=== PATIENT | female | born 2000 | race Two or more races ===

== ENCOUNTER 2023-01-20 18:27 | Inpatient (IN) | payer OTHER ==
[~2023-01-20] VITALS: Ht 134.6 cm; Wt 50.3 kg
--- NOTE | 2023-01-20 18:30 | NUR ---
HEAVEN RA 39 C/C ALOC
--- NOTE | 2023-01-20 18:35 | NUR ---
Received patient from transport crew and placed on vent AC pressure control 16, RR 14, +8, 100% Fio2. No sob or resp. distress noted. Trach patent secure and in place. Suctioned prn.
--- NOTE | 2023-01-20 18:40 | NUR ---
PATIENT HAD GENERALIZED SEIZURE MD MADE AWARE ORDERS ATIVAN 2MG IV GIVEN.
--- NOTE | 2023-01-20 18:40 | NUR ---
COVID SWAB OBTAINED
[2023-01-20] MEDS ORDERED: LORAZEPAM INJ 2 MG/ML VIAL ONE (18:42)
--- NOTE | 2023-01-20 18:43 | NUR ---
BLOOD SAMPLES OBTAINED
--- NOTE | 2023-01-20 18:45 | NUR ---
RT PT RECEIVED TRACHED W/ [facility] #6 CUFFLESS ON MECH VENT ON AC PRESSURE CONTROL MODE SETTINGS: PC 16, RR 14, FIO2 30%, PEEP +8. AIRWAY PATENT AND SECURED. ALARMS SET AND AUDIBLE. WILL CON TO MONITOR.
--- NOTE | 2023-01-20 18:48 | NUR ---
DR. DEL ROSARIO AT BEDSIDE
[2023-01-20] MEDS ORDERED: LORAZEPAM INJ 2 MG/ML VIAL IVP ONE (19:00)
[2023-01-20] MEDS ORDERED: IV NS 0.9% 1,000 ML BAG IV ONE ×2 (19:00→21:00)
[2023-01-20 19:23] LABS: CALCIUM, SERUM 9.2 mg/dL (8.5-10.1); CARBON DIOXIDE 36 mmol/L (21-32); CHLORIDE 94 mmol/L (98-107); CREATININE 0.3 mg/dL (0.6-1.3); GLUCOSE 128 mg/dL (74-106); POTASSIUM 4.3 mmol/L (3.5-5.1); SODIUM SERUM 132 mmol/L (136-145); UREA NITROGEN, BLOOD 10 mg/dL (7-18)
[2023-01-20 19:29] LABS: ALANINE AMINOTRANSFERASE 21 U/L (12-78); ALBUMIN 2.8 g/dL (3.4-5.0); ALKALINE PHOSPHATASE 66 U/L (46-116); ASPARTATE AMINOTRANSFERASE 18 U/L (15-37); BILIRUBIN,DIRECT 0.1 mg/dL (0.0-0.2); BILIRUBIN,TOTAL 0.1 mg/dL (0.2-1.0); TOTAL PROTEIN, SERUM 7.4 g/dL (6.4-8.2); VALPROIC ACID 83 ug/mL (50-100)
--- NOTE | 2023-01-20 20:32 | NUR ---
CALLED [email or web address]. SPOKE TO SETH. THEY WILL SEND MESSAGE TO DR SHELLEY WITH REGARDS TO PEER TO PEER.
--- NOTE | 2023-01-20 20:34 | NUR ---
DR. MIGUEL ÁNGEL NINO ON PHONE CALL WITH DR SHELLEY
[2023-01-20] MEDS ORDERED: LEVOFLOXACIN 750 MG /D5W 150ML 150 ML IV ONE ×2 (21:00→21:11)
[2023-01-20] MEDS ORDERED: Z GUARD REMEDY 4 OZ OINT TP PRN (21:00)
[2023-01-20] MEDS ORDERED: ONDANSETRON HCL/PF 4 MG/2 ML VIAL IVP PRN (21:00)
[2023-01-20] MEDS ORDERED: MAG HYDROX/AL HYDROX/SIMETH 30 ML UDC PO PRN (21:00)
--- NOTE | 2023-01-20 21:37 | NUR ---
ROOM 110
--- NOTE | 2023-01-20 22:05 | NUR ---
RN NOTE RECEIVED ER ADMISSION REPORT FROM EFREN OLIVA. ALL PERTINENT ADMISSION INFO REGARDING PT NOTED. WILL WAIT FOR PT TO BE TRANSFERRED TO UNIT AND ADDRESS NEEDS ACCORDINGLY. SENIOR PROPERTY MANAGER MADE AWARE.
--- NOTE | 2023-01-20 22:10 | NUR ---
REPORT GIVEN TO BRIELLE SCHWARTZ ROOM 110 FOR JR
--- NOTE | 2023-01-20 22:37 | NUR ---
TRANSFERRED TO [facility] VIA ACLS PROTOCOL
--- NOTE | 2023-01-20 22:40 | NUR ---
RN NOTE RECEIVED PT FROM ER VIA GURNEY ACCOMPANIED BY 2 ER STAFF AND TRANSFERRED TO BED VIA 2-3 PERSON ASSIST. PT OBTUNDED AND ON MECHANICAL VENT; SETTINGS PRESCRIBED WITH RESPIRATIONS EVEN AND UNLABORED. PT MOM AT BEDSIDE. COMPREHENSIVE PHYSICAL ASSESSMENT AND PATIENT CARE DONE. CALL LIGHT WITHIN REACH, SAFETY MEASURES AND WILL CONTINUE MONITOR AND ASSESS THROUGHOUT THE SHIFT. WILL CARRY OUT MD ORDERS ACCORDINGLY. SOLID PROPELLANT PROCESSOR MADE AWARE.
[2023-01-20] MEDS: IV NS 0.9% 1,000 ML IV SCH (23:00)
[2023-01-20 23:15] LABS: BASOPHILS % (AUTO) 0.1 % (0.0-2.0); EOSINOPHILS % (AUTO) 0.2 % (0.0-6.0); HEMATOCRIT 36 % (33-45); HEMOGLOBIN 12.1 g/dL (11.5-14.8); LYMPHOCYTES # (AUTO) 2.6 K/uL (0.8-4.8); LYMPHOCYTES % (AUTO) 38.4 % (20.0-44.0); MEAN CORPUSCULAR HGB CONC 34 g/dl (31.0-36.0); MEAN CORPUSCULAR VOLUME 94 fL (82-100); MONOCYTES # (AUTO) 1.2 K/uL (0.1-1.30); MONOCYTES % (AUTO) 17.8 % (2.0-12.0); NEUTROPHILS % (AUTO) 43.5 % (43.0-81.0); PLATELET COUNT (AUTO) 345 K/uL (150-450); RED BLOOD CELL COUNT(AUTO) 3.83 MIL/uL (4.0-5.2); WHITE BLOOD COUNT (AUTO) 6.9 K/uL (4.3-11.0)
[2023-01-20] MEDS ORDERED: LEVETIRACETAM (500MG) 1,000 MG in IV NS 0.9% 100 ML IV SCH (23:30)
[2023-01-20 23:54] LABS: LYMPHOCYTES % (MANUAL) 35 % (16-48); METAMYELOCYTES % 1 % (0-0); MONOCYTES % (MANUAL) 23 % (0-11.0); MYELOCYTES % 1 % (0-0); NEUTROPHILS % (MANUAL) 40 (42-76)
[2023-01-21] VITALS: BP 125/72
[2023-01-21] MEDS ORDERED: LEVETIRACETAM (500MG) 500 MG/5 ML VIAL IV ONE (00:30)
[2023-01-21 04:00] VITALS: BP 128/68
--- NOTE | 2023-01-21 04:00 | NUR ---
RN NOTE PATIENT REMAINED TO BE IN NO SIGNS OF ACUTE RESPIRATORY DISTRESS , VITAL SIGNS STABLE AT THIS TIME. REGULAR TURNING AND REPOSITIONING DONE, SUCTIONING DONE, AND AM PATIENT CARE RENDERED WILL CONTINUE TO MONITOR AND REASSESS FOR ANY CHANGES THROUGHOUT THE SHIFT.
--- NOTE | 2023-01-21 06:00 | NUR ---
RN NOTE RECEIVED CALL FROM PT'S MOM (MARTHA) PROVIDED STATUS UPDATE. V/S WNL. NO EPISODE OF SEIZURE NOTED. REQUESTED MARTHA TO PROVIDE COPIES OF HOME MEDS OF PT. SHE ACKNOWLEDGED AND CONFIRM TO HAND IT OVER UPON HER PT'S VISIT TODAY. WILL ENDORSE TO AM SHIFT FOR FOLLOW THROUGH.
[2023-01-21] MEDS: IV NS 0.9% 1,000 ML IV SCH ×2 (06:09→17:06)
--- NOTE | 2023-01-21 06:39 | NUR ---
RN CLOSING NOTE PATIENT REMAINS IN ROOM IN NO SIGNS OF RESPIRATORY DISTRESS, PATIENT STILL ON MECH VENT; SETTINGS PRESCRIBED;TOLERATING WELL SATURATING @ >95% SP02. SR ON MONITOR. NO EPISODE AND INCIDENT OF SEIZURE. SAFETY MEASURES IMPLEMENTED, BED IN LOWEST POSITION, LOCKED, SIDE RAILS UP, CALL LIGHT WITHIN REACH. ALL NEEDS AND ORDERS ADDRESSED DURING THE SHIFT. IV ACCESS MAINTAINED INTACT, SECURED AND FLUSHING WELL. PEG TUBE CLAMPED AT THIS TIME. ALL DUE MEDS GIVEN ORDERED & SCHEDULED ; PATIENT TOLERATED WELL. WILL NEED TO FOLLOW UP WITH PT'S MOM REGARDING HOME MEDS AND FEEDING OF PT. PATIENT KEPT CLEAN AND COMFORTABLE WITHIN THE SHIFT. PATIENT ENDORSED TO INCOMING SHIFT RN WITH STABLE VITAL SIGN AND FOR CONTINUITY OF CARE.
[2023-01-21 06:43] LABS: BASOPHILS % (AUTO) 0.1 % (0.0-2.0); EOSINOPHILS % (AUTO) 0.3 % (0.0-6.0); HEMATOCRIT 33 % (33-45); HEMOGLOBIN 10.8 g/dL (11.5-14.8); LYMPHOCYTES # (AUTO) 1.3 K/uL (0.8-4.8); LYMPHOCYTES % (AUTO) 23.3 % (20.0-44.0); MEAN CORPUSCULAR HGB CONC 33 g/dl (31.0-36.0); MEAN CORPUSCULAR VOLUME 94 fL (82-100); MONOCYTES # (AUTO) 1.1 K/uL (0.1-1.30); MONOCYTES % (AUTO) 21.3 % (2.0-12.0); PLATELET COUNT (AUTO) 327 K/uL (150-450); RED BLOOD CELL COUNT(AUTO) 3.47 MIL/uL (4.0-5.2); WHITE BLOOD COUNT (AUTO) 5.4 K/uL (4.3-11.0)
--- NOTE | 2023-01-21 07:15 | NUR ---
RN OPENING NOTE RECEIVED PATIENT IN BED, NON VERBAL, ON MECH VENT; SETTINGS PRESCRIBED;TOLERATING WELL SATURATING @ >95% SP02. SR ON EXTERNAL SUCTION DRUM DRIER OPERATOR. IV ACCESS LEFT HAND 22G, FLUSHES WELL. SAFETY MEASURES IMPLEMENTED, BED IN LOWEST POSITION, LOCKED, SIDE RAILS UP, WILL CONTINUE TO MONITOR.
[2023-01-21 07:17] LABS: CALCIUM, SERUM 8.9 mg/dL (8.5-10.1); CREATININE 0.2 mg/dL (0.6-1.3); PHOSPHORUS 3.3 mg/dL (2.5-4.9); POTASSIUM 4.1 mmol/L (3.5-5.1)
[2023-01-21 08:00] VITALS: BP 109/72
[2023-01-21] MEDS: LEVETIRACETAM (500MG) 1,000 MG in IV NS 0.9% 100 ML IV SCH ×2 (08:35→21:21)
[2023-01-21 08:37] LABS: BAND % (MANUAL) 1 % (0.0-5.0); LYMPHOCYTES % (MANUAL) 23 % (16-48); METAMYELOCYTES % 1 % (0-0); MONOCYTES % (MANUAL) 19 % (0-11.0); NEUTROPHILS % (MANUAL) 56 (42-76)
[2023-01-21 12:00] VITALS: BP 109/72
[2023-01-21] MEDS ORDERED: JEVITY 1.2 CAL 1,000 ML BOTTLE GT PRN (12:00)
[2023-01-21] MEDS ORDERED: CLINDAMYCIN IV RTU IN D5W 900 MG/50 ML PIGGYBACK IV SCH (13:00)
[2023-01-21] MEDS ORDERED: AZTREONAM 1 G in IV NS 0.9% 100 ML IV SCH (13:00)
[2023-01-21] MEDS ORDERED: DIAZ1KIT2 RC (13:11)
[2023-01-21] MEDS ORDERED: VALP250S4 GT (13:11)
[2023-01-21] MEDS ORDERED: POLY17PO4 PO (13:11)
[2023-01-21] MEDS ORDERED: [UNRECOGNIZED DRUG - CODE] GT (13:11)
[2023-01-21] MEDS ORDERED: ALBU2.5V38 NEB (13:11)
[2023-01-21] MEDS ORDERED: [UNRECOGNIZED DRUG - CODE] GT (13:11)
[2023-01-21] MEDS ORDERED: LEVO100S2 GT (13:11)
[2023-01-21] MEDS ORDERED: DIAZ5SOL GT (13:11)
[2023-01-21] MEDS ORDERED: BUDE0.5A4 NEB (13:11)
[2023-01-21] MEDS ORDERED: CALC1TAB30 GT (13:11)
[2023-01-21] MEDS ORDERED: MULT9LIQ6 GT (13:11)
[2023-01-21] MEDS ORDERED: LEVE500S9 GT (13:11)
[2023-01-21] MEDS: ENOXAPARIN SODIUM 40 MG/0.4 ML DISP.SYRIN SQ SCH (13:37)
[2023-01-21] MEDS: CLINDAMYCIN 900 MG in IV D5W 50 ML IV SCH ×2 (13:55→22:16)
--- NOTE | 2023-01-21 14:50 | NUR ---
Per Radiologist the procedure will be done tomorrow. EFREN Perla was informed. Consent not signed yet.
[2023-01-21] MEDS: AZTREONAM 1 G in IV NS 0.9% 100 ML IV SCH ×2 (15:43→23:39)
[2023-01-21 16:00] VITALS: BP 142/63
--- NOTE | 2023-01-21 19:05 | NUR ---
RN CLOSING NOTE PATIENT IN BED, ON [facility] VENT; SETTINGS PRESCRIBED;TOLERATING WELL SATURATING @ >95% SP02. SR ON EXTERNAL CLINICAL NURSE. IV ACCESS LEFT HAND 22G, FLUSHES WELL. JEVITY 1.2 40ML/HR X 24HR VIA G-TUBE. CT CHEST POSSIBLE FOR TOMORROW, ALSO THORACENTESIS FOR DIAGNOSTIC AND THERAPEUTIC PURPOSES, CONSENT SIGNED BY MOM SAFETY MEASURES IMPLEMENTED, BED IN LOWEST POSITION, LOCKED, SIDE RAILS UP, WILL ENDORSE TO THE NEXT SHIFT FOR JR.
--- NOTE | 2023-01-21 19:30 | NUR ---
RN OPENING NOTE RECEIVED PATIENT IN BED, NON VERBAL, WITH MOTHER AT BED SIDE. [facility]; SETTINGS PRESCRIBED;TOLERATING WELL. PT ON EXTERNAL ELECTRIC UTILITY LINEWORKER READING SR. IV ACCESS TO LEFT HAND 22G, FLUSHING WELL, AND INFUSING NS AT 100 ML/HR. HAS G-TUBE FEEDING WITH JEVITY 1.2 RUNNING AT 40 ML/HR. SAFETY MEASURES IMPLEMENTED, BED IN LOWEST POSITION, LOCKED, SIDE RAILS UP. WILL CONTINUE TO MONITOR PT.
[2023-01-21 20:00] VITALS: BP 141/92
--- NOTE | 2023-01-21 22:00 | NUR ---
RN NOTE PT'S IV ACCESS TO LEFT HAND #22G IS INFILTRATED. NEW IV ACCESS IS INSERTED TO RIGHT HAND #24G, IV FLUSHES WELL.
[2023-01-22] VITALS: BP 141/97
[2023-01-22] MEDS: IV NS 0.9% 1,000 ML IV SCH (03:00)
[2023-01-22 04:00] VITALS: BP 102/83
[2023-01-22] MEDS: LORAZEPAM INJ 2 MG/ML VIAL IV PRN (04:08)
[2023-01-22] MEDS: CLINDAMYCIN 900 MG in IV D5W 50 ML IV SCH (06:15)
--- NOTE | 2023-01-22 06:55 | NUR ---
RN CLOSING NOTE PAT[facility] BED, [facility]; SETTINGS PRESCRIBED;TOLERATING WELL SATURATING @ 98% SP02. SR ON EXTERNAL ORACLE DATABASE ADMINISTRATOR. IV ACCESS TO RIGHT HAND 24G, FLUSHES WELL. STOPPED JEVITY 1.2 40ML/HR X 24HR VIA G-TUBE DUE TO CT CHEST POSSIBLE FOR TODAY, ALSO THORACENTESIS FOR DIAGNOSTIC AND THERAPEUTIC PURPOSES, CONSENT SIGNED BY MOM. PT HAS NO URINE OUTPUT IN ETIENNE CATHETER BAG. BLADDER SCAN DONE, NO PVR. BUT PT'S DIAPPER IS VERY WET. FC IS NOT IN PLACE ANYMORE. NEW F/C 18G INSERTED, WITH URINE CLEAR YELLOW URINE DRAINING. SAFETY MEASURES IMPLEMENTED, BED IN LOWEST POSITION, LOCKED, SIDE RAILS UP. WILL ENDORSE TO THE NEXT SHIFT NURSE FOR JR.
--- NOTE | 2023-01-22 07:20 | NUR ---
GARMENT PRESSER OPENING NOTES Received pt awake bed. Non verbal and unable to follow command. No signs of pain or discomfort at this time. Respirations are equal and unlabored with no SOB. Pt is on a ventilator on prescribed settings tolerating it well. Trach is patent, intact, and in midline position. GT is patent and intact. Awaiting midline placed d/t pt hardstick for IV. HOB elevated to 30-45 degrees. Siderails up at all times. Call light within reach. Will continue to monitor.
[2023-01-22 08:00] VITALS: BP 137/93
[2023-01-22] MEDS: ENOXAPARIN SODIUM 40 MG/0.4 ML DISP.SYRIN SQ SCH (09:00)
[2023-01-22] MEDS: LEVETIRACETAM (500MG) 1,000 MG in IV NS 0.9% 100 ML IV SCH ×2 (10:29→20:19)
[2023-01-22] MEDS: AZTREONAM 1 G in IV NS 0.9% 100 ML IV SCH ×3 (10:30→23:33)
[2023-01-22 12:00] VITALS: BP 131/99
[2023-01-22] MEDS ORDERED: VALPROATE 1,000 MG in IV D5W 100 ML IV SCH (12:00)
[2023-01-22] MEDS: CLINDAMYCIN HCL 150 MG CAPSULE PO SCH ×2 (12:25→20:19)
[2023-01-22 12:26] LABS: BASOPHILS % (AUTO) 0.2 % (0.0-2.0); EOSINOPHILS % (AUTO) 0.4 % (0.0-6.0); HEMATOCRIT 38 % (33-45); HEMOGLOBIN 12.6 g/dL (11.5-14.8); LYMPHOCYTES # (AUTO) 2.2 K/uL (0.8-4.8); MEAN CORPUSCULAR HGB CONC 34 g/dl (31.0-36.0); MEAN CORPUSCULAR VOLUME 92 fL (82-100); MONOCYTES # (AUTO) 1.7 K/uL (0.1-1.30); MONOCYTES % (AUTO) 20.7 % (2.0-12.0); NEUTROPHILS # (AUTO) 4.3 K/uL (1.8-8.9); NEUTROPHILS % (AUTO) 51.7 % (43.0-81.0); PLATELET COUNT (AUTO) 409 K/uL (150-450); RED BLOOD CELL COUNT(AUTO) 4.08 MIL/uL (4.0-5.2); WHITE BLOOD COUNT (AUTO) 8.3 K/uL (4.3-11.0)
[2023-01-22] MEDS: VALPROIC ACID 250 MG/5 ML UDC GT SCH ×2 (12:54→17:20)
[2023-01-22] MEDS: DIAZEPAM 2 MG TABLET GT SCH ×2 (12:55→23:27)
[2023-01-22 14:11] LABS: ALBUMIN 2.9 g/dL (3.4-5.0); BILIRUBIN,TOTAL 0.1 mg/dL (0.2-1.0); CALCIUM, SERUM 9.2 mg/dL (8.5-10.1); CREATININE 0.3 mg/dL (0.6-1.3); POTASSIUM 3.4 mmol/L (3.5-5.1); TOTAL PROTEIN, SERUM 7.5 g/dL (6.4-8.2)
[2023-01-22 16:00] VITALS: BP 135/52
[2023-01-22] MEDS: IV NS 0.9% 1,000 ML IV PRN (17:21)
--- NOTE | 2023-01-22 18:38 | NUR ---
MILLING MACHINE OPERATOR GEAR NOTES All due meds and tx given as ordered. Pt tolerated everything well. All needs attended to. Will endorse to oncoming nurse.
[2023-01-22] MEDS ORDERED: VALPROATE 1,000 MG in IV D5W 100 ML IV ONE (19:00)
[2023-01-22 19:04] LABS: BILIRUBIN,URINE NEGATIVE (NEGATIVE); COLOR,URINE YELLOW (YELLOW); LEUKOCYTE ESTERASE ,URINE NEGATIVE (NEGATIVE); NITRITE, URINE NEGATIVE (NEGATIVE); PROTEIN,URINE 1+ mg/dl (NEGATIVE); UGLUCOSE NEGATIVE (NEGATIVE); UROBILINOGEN,URINE 0.2 EU/dL (0.2)
[2023-01-22 19:06] LABS: BACTERIA,URINE None seen /HPF (None Seen); RBC,URINE 51-80 /HPF (0-2); WBC,URINE 0-2 /HPF (0-3)
--- NOTE | 2023-01-22 19:50 | NUR ---
RN Opening Notes Received pt in bed, asleep, with eyes closed, family at bedside. Pt is obtunded. On mechanical vent and tolerating well. No SOB noted. No s/sx of respiratory distress noted. Tele monitor detects SR with rate of 80. IV access in PARVIZ Midline 18G running NS @ 100 ml/hr. Safety precautions in place: bed in lowest, locked position, siderails upx2, and brakes on. Table and call light within reach. All needs met at this time.
[2023-01-22 20:00] VITALS: BP 138/99
[2023-01-23] VITALS (14 sets, daily range): BP systolic 88–162; BP diastolic 24–100
[2023-01-23] MEDS: CLINDAMYCIN HCL 150 MG CAPSULE PO SCH (04:08)
[2023-01-23] MEDS: IV NS 0.9% 1,000 ML IV PRN ×2 (04:08→15:45)
[2023-01-23] MEDS: LORAZEPAM INJ 2 MG/ML VIAL IV PRN ×2 (06:10→16:40)
[2023-01-23] MEDS: AZTREONAM 1 G in IV NS 0.9% 100 ML IV SCH ×3 (06:25→23:01)
--- NOTE | 2023-01-23 06:52 | NUR ---
RN Closing Notes Pt in bed, with eyes closed, opens eyes to verbal and painful stimuli. Pt is obtunded. On mechanical vent and tolerating well. No SOB noted. No s/sx of respiratory distress noted. Tele monitor detects SR and sinus tachycardia. IV access in PARVIZ Midline 18G running NS @ 100 ml/hr. All orders carried out. All needs met. Pt kept clean and dry. Safety precautions in place: bed in lowest, locked position, siderails upx2, and brakes on. Table and call light within reach. Will endorse to oncoming shift for JR.
[2023-01-23 07:05] LABS: ALBUMIN 2.6 g/dL (3.4-5.0); BILIRUBIN,TOTAL 0.2 mg/dL (0.2-1.0); CALCIUM, SERUM 8.4 mg/dL (8.5-10.1); CREATININE 0.2 mg/dL (0.6-1.3); POTASSIUM 3.1 mmol/L (3.5-5.1)
--- NOTE | 2023-01-23 07:10 | NUR ---
RN NOTE RECEIVED PATIENT IN BED RESTING,OBTUNDED ON MECHANICAL VENT SETTING PRESCRIBED,IV ACCESS ON PARVIZ 18G, RUNNING NS 100CC/HR, ON GT FEEDING CHECKED PLACEMENT IN PLACE NO RESIDUAL NOTED,NPO FOR PROCEDURE THORACENTESIS,SAFETY MEASURE IMPLEMENT BED IN LOW POSITION AND LOCKED HEAD OF THE BED ELEVATED,CONTINUE TO MONITOR.
[2023-01-23 08:06] LABS: BASOPHILS % (AUTO) 0.2 % (0.0-2.0); EOSINOPHILS % (AUTO) 0.6 % (0.0-6.0); HEMATOCRIT 36 % (33-45); HEMOGLOBIN 12.1 g/dL (11.5-14.8); LYMPHOCYTES # (AUTO) 1.4 K/uL (0.8-4.8); LYMPHOCYTES % (AUTO) 14.9 % (20.0-44.0); MEAN CORPUSCULAR HGB CONC 34 g/dl (31.0-36.0); MEAN CORPUSCULAR VOLUME 92 fL (82-100); MONOCYTES # (AUTO) 2.4 K/uL (0.1-1.30); MONOCYTES % (AUTO) 25.9 % (2.0-12.0); NEUTROPHILS # (AUTO) 5.3 K/uL (1.8-8.9); NEUTROPHILS % (AUTO) 58.4 % (43.0-81.0); PLATELET COUNT (AUTO) 412 K/uL (150-450); WHITE BLOOD COUNT (AUTO) 9.1 K/uL (4.3-11.0)
[2023-01-23] MEDS: VALPROIC ACID 250 MG/5 ML UDC GT SCH ×3 (08:29→16:25)
[2023-01-23] MEDS: LEVETIRACETAM (500MG) 1,000 MG in IV NS 0.9% 100 ML IV SCH ×2 (08:29→20:53)
[2023-01-23] MEDS: ENOXAPARIN SODIUM 40 MG/0.4 ML DISP.SYRIN SQ SCH (08:37)
[2023-01-23] MEDS ORDERED: POTASSIUM CHLORIDE 20 MEQ TAB.PRT.SR PO SCH (09:00)
--- NOTE | 2023-01-23 09:00 | NUR ---
RN NOTE HOLD LOVENOX AT 0900 DUE TO BLOODY SPUTUM,NOTIFIED DNP JORJE CONTINUE TO MONITOR
[2023-01-23] MEDS: ACETAMINOPHEN 325 MG TABLET PO PRN (10:20)
[2023-01-23] MEDS ORDERED: POTASSIUM CHLORIDE 20 MEQ TAB.PRT.SR PO ONE (11:00)
[2023-01-23] MEDS: DIAZEPAM 2 MG TABLET GT SCH ×2 (11:57→23:58)
--- NOTE | 2023-01-23 12:27 | NUR ---
RT TRACH CHANGE DONE DUE TO POSSIBLE MUCOUS PLUG, DIFFICULTY PASSING 8 AZERI CATHETER, CUFF STILL DEFLATED PER MOTHERS REQUEST, NO COMPLICATIONS ON TRACH CHANGE EQUAL BILATERAL CHEST RISE AND BS, NO BLEEDING STOMA RED ABLE TO PASS SX CATHETER AFTER WILL CONT TO MONITOR PLACED BACK ON VENT WITH THE SAME SETTINGS
[2023-01-23] MEDS ORDERED: ALBUTEROL FS 2.5 MG/0.5 ML VIAL.NEB NEB PRN (12:30)
[2023-01-23 12:53] LABS: BAND % (MANUAL) 20 % (0.0-5.0); LYMPHOCYTES % (MANUAL) 13 % (16-48); MONOCYTES % (MANUAL) 23 % (0-11.0); NEUTROPHILS % (MANUAL) 44 (42-76)
[2023-01-23] MEDS: BUDESONIDE RESPULE INH 0.25 MG/2 ML AMPUL.NEB NEB SCH ×2 (13:49→19:05)
[2023-01-23] MEDS: ALBUTEROL FS 2.5 MG/0.5 ML VIAL.NEB NEB SCH ×2 (13:50→19:05)
[2023-01-23] MEDS ORDERED: hydrALAZINE HCL IV 20 MG VIAL IV ONE (16:30)
--- NOTE | 2023-01-23 17:00 | NUR ---
RN NOTE CALLED DR RECINOS FOR PATIENT HR 120-[address] RECINOS ORDERED STAT ABG
[2023-01-23] MEDS ORDERED: PROPOFOL 10MG/ML 50ML 50 ML IV PRN (17:30)
--- NOTE | 2023-01-23 17:30 | NUR ---
RN NOTE REPORT ABG RESULT TO DR SONALI ELAINE ORDERED TRANSFER TO ICU FOR CLOSE MONITORING
[2023-01-23] MEDS: PROPOFOL 100 ML IV PRN (18:01)
--- NOTE | 2023-01-23 18:50 | NUR ---
RN NOTE PATIENT REMAINS ON OBTUNDED,NON VERBAL,ON MECHANICAL VENT,STARTED PROPOFOL 5MCG/KG/MIN SEDATION ORDERED,ON IV NS 50CC/HR,TACHYCARDIA 110-122,ALL DUE MEDS GIVEN MD ORDERED,ETIENNE CATH IN PLACE,HEAD OF THE BED ELEVATED ALL THE TIME,ENDORSE NEXT COMING SHIFT FOR CONTINUATION OF CARE.
--- NOTE | 2023-01-23 20:00 | NUR ---
Received patient with trach to vent with prescribed settings.Tachypneic 30's-40's.Sedated on Diprivan gtt and will titrate per protocol.Moderate secretions orally and via trach.Secretions suction prn.RT at bedside.Dx: SEIZURE Aand Respiratory Failure.Will start GT feeding as ordered.FC to gravity.Turned and repositioned to comfort.Continue monitoring.
--- NOTE | 2023-01-23 20:04 | NUR ---
RT NOTE PT NOTED WITH NEW TRACH IN PLACE. SHILEY 6 PEDS CUFFED. HHN TX GIVEN, NO ADVERSE REACTIONS NOTED. SUCTION DONE, SMALL THICK BLOODY SECRETIONS. LAVAGED WITH NORMAL SALINE. WILL CONTINUE TO MONITOR CLOSELY. ALARMS ON AND AUDIBLE. ABG DRAWN AND REPORTED TO EFREN HARVEY AND DR. LYON.
[2023-01-23 21:36] LABS: ABG BASE EXCESS 6.3 mmol/L; ABG OXYGEN SATURATION 97.1 % (92.0-98.5); ABG PCO2 64.9 mmHg (35.0-45.0); ABG PH 7.339 (7.350-7.450); AaDO2 115.6 mmHg; COHb 0.6 % (0.5-1.5); MetHb 0.5 % (0.0-1.5); SITE, ABG Left Radial
[2023-01-23 21:36] LABS: ABG BASE EXCESS 2.1 mmol/L; ABG OXYGEN SATURATION 93.8 % (92.0-98.5); ABG PCO2 105.6 mmHg (35.0-45.0); ABG PH 7.139 (7.350-7.450); ABG PO2 87.3 mmHg (75.0-100.0); AaDO2 76.5 mmHg; COHb 0.8 % (0.5-1.5); MetHb 0.6 % (0.0-1.5); O2Hb 92.5 % (94.0-97.0); SITE, ABG Right Radial; VENT MODE, BG PC 16 RR14 40% +5
[2023-01-23] MEDS: JEVITY 1.2 CAL 1,000 ML BOTTLE GT SCH (22:39)
[2023-01-23] MEDS ORDERED: DIAZEPAM 2 MG TABLET ONE (23:53)
[2023-01-24] VITALS (32 sets, daily range): BP systolic 90–154; BP diastolic 46–103
--- NOTE | 2023-01-24 | NUR ---
Patient remains sedated.No acute distress noted.Due medications administered.Turned and repositioned.
[2023-01-24 04:51] LABS: EOSINOPHILS % (AUTO) 0.2 % (0.0-6.0); HEMATOCRIT 30 % (33-45); HEMOGLOBIN 10.5 g/dL (11.5-14.8); LYMPHOCYTES # (AUTO) 1.5 K/uL (0.8-4.8); LYMPHOCYTES % (AUTO) 20.4 % (20.0-44.0); MEAN CORPUSCULAR HGB CONC 35 g/dl (31.0-36.0); MEAN CORPUSCULAR VOLUME 92 fL (82-100); MONOCYTES # (AUTO) 2.2 K/uL (0.1-1.30); MONOCYTES % (AUTO) 29.1 % (2.0-12.0); NEUTROPHILS # (AUTO) 3.8 K/uL (1.8-8.9); NEUTROPHILS % (AUTO) 50.3 % (43.0-81.0); PLATELET COUNT (AUTO) 371 K/uL (150-450); WHITE BLOOD COUNT (AUTO) 7.5 K/uL (4.3-11.0)
--- NOTE | 2023-01-24 06:00 | NUR ---
Patient resting.Diprivan gtt infusing at 20 mcg.No seizure activity noted.Tolerating gt feeding well. AM care done.No bm noted.Turned and repositioned.Continue monitoring.Will endorse to day shift for JR.
[2023-01-24 06:19] LABS: CALCIUM, SERUM 8.7 mg/dL (8.5-10.1); CREATININE 0.2 mg/dL (0.6-1.3); POTASSIUM 3.7 mmol/L (3.5-5.1)
[2023-01-24 06:20] LABS: ALBUMIN 2.2 g/dL (3.4-5.0); BILIRUBIN,TOTAL 0.1 mg/dL (0.2-1.0); PHOSPHORUS 3.7 mg/dL (2.5-4.9)
[2023-01-24] MEDS: AZTREONAM 1 G in IV NS 0.9% 100 ML IV SCH ×3 (06:30→23:48)
[2023-01-24] MEDS: PROPOFOL 100 ML IV PRN ×2 (06:34→16:16)
--- NOTE | 2023-01-24 07:43 | NUR ---
FORMULATION SCIENTIST OPENING NOTE RECEIVED PATIENT IN BED AWAKE, PATIENT REMAINS ON OBTUNDED,NON VERBAL,ON MECHANICAL VENT ON SETTINGS ORDERED. NOTED ON PROPOFOL 20MCG/KG/MIN, PATIENT NOTED SEDATED. PARVIZ MIDLINE NOTED PATENT AND INTACT, FLUSHES WELL WITH NS @50CC/HR RUNNING. ETIENNE CATH IN PLACE, DRAINING CLEAR YELLOW URINE VIA GRAVITY. HEAD OF THE BED ELEVATED ALL THE TIME. CALL LIGHT WITHIN REACH. PLAN OF CARE CONTINUE.
[2023-01-24] MEDS: ALBUTEROL FS 2.5 MG/0.5 ML VIAL.NEB NEB SCH ×2 (07:55→19:47)
[2023-01-24] MEDS: BUDESONIDE RESPULE INH 0.25 MG/2 ML AMPUL.NEB NEB SCH ×2 (07:57→19:48)
[2023-01-24] MEDS: VALPROIC ACID 250 MG/5 ML UDC GT SCH ×3 (08:32→17:17)
[2023-01-24] MEDS: ENOXAPARIN SODIUM 40 MG/0.4 ML DISP.SYRIN SQ SCH ×2 (08:33→09:00)
--- NOTE | 2023-01-24 08:40 | NUR ---
DR. LYON AT THE BED SIDE, PATIENT NOTED IN RESPIRATORY DISTRESS, WITH VERBAL ORDER FROM DR. LYON TO INCREASE PROFOLOL TO 50MCG, NOTED AND CARRIED OUT.
--- NOTE | 2023-01-24 09:00 | NUR ---
HELD LOVENOX, DUE TO BLEEDING WHEN SUCTIONING.
--- NOTE | 2023-01-24 09:11 | NUR ---
DR. LYON AT THE BEDSIDE WITH NEW ORDER STAT CHEST XRAY, NOTED AND CARRIED OUT. ATIVAN 1MG IV PUSH X1 NOW AND 1MG Q1HR PRN, NOTED AND CARRIED OUT.
[2023-01-24] MEDS: LEVETIRACETAM (500MG) 1,000 MG in IV NS 0.9% 100 ML IV SCH ×2 (09:14→21:03)
[2023-01-24] MEDS ORDERED: LORAZEPAM INJ 2 MG/ML VIAL IV ONE (09:30)
[2023-01-24] MEDS: methylPREDNISolone SOD SUCC 125 MG/2ML VIAL IV SCH ×2 (10:37→17:17)
[2023-01-24] MEDS: DIAZEPAM 2 MG TABLET GT SCH (13:04)
[2023-01-24] MEDS: LEVOCARNITINE 10% GT SCH ×2 (13:55→17:18)
[2023-01-24] MEDS: RUFINAMIDE 40 MG/ML GT SCH ×2 (13:57→17:18)
[2023-01-24] MEDS: IV NS 0.9% 1,000 ML IV PRN (14:12)
[2023-01-24 14:36] LABS: BAND % (MANUAL) 6 % (0.0-5.0); BASOPHILS % (MANUAL) 0 % (0.0-2.0); EOSINOPHILS % (MANUAL) 0 % (0-4); LYMPHOCYTES % (MANUAL) 25 % (16-48); MONOCYTES % (MANUAL) 18 % (0-11.0); NEUTROPHILS % (MANUAL) 49 (42-76)
--- NOTE | 2023-01-24 18:40 | NUR ---
DIGITAL COURT REPORTER CLOSING NOTE PATIENT IN BED SLEEPING, FAMILY AT THE BEDSIDE, PATIENT REMAINS ON OBTUNDED,NON VERBAL,ON MECHANICAL VENT ON SETTINGS ORDERED. PARVIZ MIDLINE NOTED PATENT AND INTACT, FLUSHES WELL WITH NS @50CC/HR RUNNING AND NOTED ON PROPOFOL 20MCG/KG/MIN, PATIENT NOTED SEDATED. ETIENNE CATH IN PLACE, DRAINING CLEAR YELLOW URINE VIA GRAVITY. HEAD OF THE BED ELEVATED ALL THE TIME. ASPIRATION AND SEIZURE PRECAUTION CONTINUED. NO SEIZURE EPISODE NOTED. CALL LIGHT WITHIN REACH. SAFTEY MEASURES IN PLACED. ON TELE MONITORING SR HR 71. WILL ENDORSE TO NIGHT NURSE FOR JR.
--- NOTE | 2023-01-24 20:00 | NUR ---
Received patient resting in no acute distress.Patient maintained on same vent settings via trach. Well tolerated saturation 97%-99%.Sedated on Diprivan gtt at 20 mcg and will titrated per protocol. SR ,Normotensive.Patient on tube feeding via GT.No residual noted.Maintain HOB elevated as safety measure.FC to gravity.Turned and repositioned to comfort.IVF infusing via PARVIZ ML.Continue monitoring.
[2023-01-25] VITALS (32 sets, daily range): BP systolic 100–135; BP diastolic 52–91
[2023-01-25] MEDS: DIAZEPAM 2 MG TABLET GT SCH ×3 (00:06→23:51)
[2023-01-25] MEDS: PROPOFOL 100 ML IV PRN ×3 (02:08→22:25)
[2023-01-25 05:26] LABS: BASOPHILS % (AUTO) 0.1 % (0.0-2.0); HEMATOCRIT 29 % (33-45); HEMOGLOBIN 9.9 g/dL (11.5-14.8); LYMPHOCYTES # (AUTO) 1.3 K/uL (0.8-4.8); LYMPHOCYTES % (AUTO) 28.4 % (20.0-44.0); MEAN CORPUSCULAR HGB CONC 34 g/dl (31.0-36.0); MEAN CORPUSCULAR VOLUME 92 fL (82-100); MONOCYTES # (AUTO) 0.9 K/uL (0.1-1.30); MONOCYTES % (AUTO) 19.1 % (2.0-12.0); NEUTROPHILS # (AUTO) 2.4 K/uL (1.8-8.9); NEUTROPHILS % (AUTO) 52.4 % (43.0-81.0); PLATELET COUNT (AUTO) 334 K/uL (150-450); RED BLOOD CELL COUNT(AUTO) 3.12 MIL/uL (4.0-5.2); WHITE BLOOD COUNT (AUTO) 4.5 K/uL (4.3-11.0)
[2023-01-25 05:32] LABS: CALCIUM, SERUM 8.7 mg/dL (8.5-10.1); CREATININE 0.2 mg/dL (0.6-1.3); POTASSIUM 3.7 mmol/L (3.5-5.1)
[2023-01-25 05:37] LABS: ALBUMIN 2.2 g/dL (3.4-5.0); BILIRUBIN,TOTAL 0.1 mg/dL (0.2-1.0)
[2023-01-25] MEDS: AZTREONAM 1 G in IV NS 0.9% 100 ML IV SCH ×3 (06:23→23:01)
--- NOTE | 2023-01-25 06:30 | NUR ---
Patient resting in no acute distress.VS remains stable.SR.Remains sedated on Diprivan gtt at 20 mcg. IVF infusing well.Tolerating gt feeding.AM care done.Secretions suction PRN.Oral care done.Turned and repositioned.No SZ activity noted.All due medications administered.Kept comfortable.Safety measures implemented.
[2023-01-25 07:19] LABS: ABG BASE EXCESS 3.6 mmol/L; ABG OXYGEN SATURATION 98.3 % (92.0-98.5); ABG PCO2 54.9 mmHg (35.0-45.0); ABG PH 7.358 (7.350-7.450); ABG PO2 124.4 mmHg (75.0-100.0); AaDO2 97.7 mmHg; COHb 0.4 % (0.5-1.5); MetHb 0.4 % (0.0-1.5); O2Hb 97.5 % (94.0-97.0); PEEP,BG 5 cm H2O; SITE, ABG Left Radial; VT, ABG 275 mL
[2023-01-25] MEDS: BUDESONIDE RESPULE INH 0.25 MG/2 ML AMPUL.NEB NEB SCH ×2 (07:30→19:26)
[2023-01-25] MEDS: ALBUTEROL FS 2.5 MG/0.5 ML VIAL.NEB NEB SCH ×2 (07:30→19:26)
--- NOTE | 2023-01-25 08:05 | NUR ---
SENIOR SCHEDULER OPENING NOTE PATIENT IN BED SLEEPING, PATIENT REMAINS ON OBTUNDED,NON VERBAL,ON MECHANICAL VENT ON SETTINGS ORDERED. PARVIZ MIDLINE NOTED PATENT AND INTACT, FLUSHES WELL WITH NS @50CC/HR RUNNING AND NOTED ON PROPOFOL 20MCG/KG/MIN, PATIENT NOTED SEDATED. ETIENNE CATH IN PLACE, DRAINING CLEAR YELLOW URINE VIA GRAVITY. HEAD OF THE BED ELEVATED ALL THE TIME. ASPIRATION AND SEIZURE PRECAUTION CONTINUED. NO SEIZURE EPISODE NOTED. CALL LIGHT WITHIN REACH. SAFTEY MEASURES IN PLACED. ON TELE MONITORING SB HR 52. PLAN OF CARE CONTINUE.
[2023-01-25] MEDS: VALPROIC ACID 250 MG/5 ML UDC GT SCH ×3 (08:40→16:47)
[2023-01-25] MEDS: methylPREDNISolone SOD SUCC 125 MG/2ML VIAL IV SCH ×2 (08:40→16:47)
[2023-01-25] MEDS: LEVETIRACETAM SOL (5 ML) 100 MG/ML UDC GT SCH ×2 (08:40→20:48)
[2023-01-25] MEDS: ENOXAPARIN SODIUM 40 MG/0.4 ML DISP.SYRIN SQ SCH (09:00)
[2023-01-25] MEDS: LEVOCARNITINE 10% GT SCH ×2 (09:05→17:32)
[2023-01-25] MEDS: RUFINAMIDE 40 MG/ML GT SCH ×2 (09:05→17:31)
--- NOTE | 2023-01-25 09:30 | NUR ---
STILL NOTED BLEEDING WHEN SUCTIONING, HELD JORJE CHAU DNP MADE AWARE.
[2023-01-25] MEDS: JEVITY 1.2 CAL 1,000 ML BOTTLE GT SCH (09:44)
[2023-01-25] MEDS: IV NS 0.9% 1,000 ML IV PRN (10:04)
[2023-01-25 11:34] LABS: ABG BASE EXCESS 4.8 mmol/L; ABG OXYGEN SATURATION 97.1 % (92.0-98.5); ABG PCO2 44.4 mmHg (35.0-45.0); ABG PH 7.441 (7.350-7.450); ABG PO2 97.5 mmHg (75.0-100.0); AaDO2 136.6 mmHg; MetHb 0.4 % (0.0-1.5); O2Hb 96.7 % (94.0-97.0); SITE, ABG Left Radial; VENT MODE, BG AC 20 275 40%+5
--- NOTE | 2023-01-25 12:20 | NUR ---
GAVE REPORT TO SELWYN SCHWARTZ.
--- NOTE | 2023-01-25 13:00 | NUR ---
ICU/RN PT IS CHRONIC TRACH ON THE VENT ,AC MODE FIO2-40%.SAT O2-96%.V/S STABLE ,AFEBRILE.SEDATED WITH DIPRIVAN ,OPEN EYES ON PAIN STIMULATION.RIGHT UPPER ARM MIDLINE.GENERALIZED EDEMA PRESENT . PT HAS BLOODY SECRETION FROM TRACH SUCTION AND AND FROM THE SIDE OF TRACHEOSTOMY.G-TUBE INFUSING WITH JEVITY AT 40 ML/HR.REPOSITION FOR COMFORT.
[2023-01-25 16:37] LABS: BAND % (MANUAL) 1 % (0.0-5.0); LYMPHOCYTES % (MANUAL) 36 % (16-48); MONOCYTES % (MANUAL) 24 % (0-11.0)
[2023-01-25 16:38] LABS: NEUTROPHILS % (MANUAL) 39 (42-76)
--- NOTE | 2023-01-25 18:00 | NUR ---
ICU/RN PM CARE PROVIDED.DUE MEDS ARE GIVEN ORDERED.PT IS RESTING.ON DIPRIVAN DRIP.AWAKE.ALERT.FAMILY AT BEDSIDE.CONTINUE MONITORING.
--- NOTE | 2023-01-25 20:00 | NUR ---
Received patient with trach to vent with prescribed settings.No acute distress noted.Copious secretions orally and nasally.Secretions suction PRN.SR.VSS.Patient remain sedated on Diprivan gtt.GT feeding in progress.No residual noted.Aspiration precaution maintain.FC to gravity.Turned and repositioned to comfort.Continue monitoring.
[2023-01-26] VITALS (40 sets, daily range): BP systolic 96–152; BP diastolic 48–110
[2023-01-26 05:05] LABS: BASOPHILS % (AUTO) 0.1 % (0.0-2.0); EOSINOPHILS % (AUTO) 0.1 % (0.0-6.0); HEMATOCRIT 31 % (33-45); HEMOGLOBIN 10.4 g/dL (11.5-14.8); LYMPHOCYTES # (AUTO) 2.7 K/uL (0.8-4.8); LYMPHOCYTES % (AUTO) 39.2 % (20.0-44.0); MEAN CORPUSCULAR HGB CONC 34 g/dl (31.0-36.0); MEAN CORPUSCULAR VOLUME 93 fL (82-100); MONOCYTES # (AUTO) 1.1 K/uL (0.1-1.30); MONOCYTES % (AUTO) 15.6 % (2.0-12.0); NEUTROPHILS # (AUTO) 3.1 K/uL (1.8-8.9); PLATELET COUNT (AUTO) 366 K/uL (150-450); RED BLOOD CELL COUNT(AUTO) 3.32 MIL/uL (4.0-5.2); WHITE BLOOD COUNT (AUTO) 6.9 K/uL (4.3-11.0)
[2023-01-26 05:29] LABS: ALBUMIN 2.1 g/dL (3.4-5.0); BILIRUBIN,TOTAL 0.1 mg/dL (0.2-1.0); CALCIUM, SERUM 8.9 mg/dL (8.5-10.1); POTASSIUM 3.8 mmol/L (3.5-5.1)
[2023-01-26 05:38] LABS: CREATININE 0.1 mg/dL (0.6-1.3)
[2023-01-26] MEDS: AZTREONAM 1 G in IV NS 0.9% 100 ML IV SCH ×3 (06:46→23:01)
[2023-01-26] MEDS: IV NS 0.9% 1,000 ML IV PRN (06:47)
--- NOTE | 2023-01-26 07:00 | NUR ---
Patient resting in no acute distress.VSS remains stable.Tolerating vent settings and GT feeding well. AM care done.Turned and repositioned .No significant change noted during the shift.No BM noted. Kept comfortable.Report given to becky simon.
[2023-01-26] MEDS: ALBUTEROL FS 2.5 MG/0.5 ML VIAL.NEB NEB SCH ×2 (07:30→19:52)
[2023-01-26] MEDS: BUDESONIDE RESPULE INH 0.25 MG/2 ML AMPUL.NEB NEB SCH ×2 (07:30→19:52)
[2023-01-26] MEDS: RUFINAMIDE 40 MG/ML GT SCH ×2 (08:16→16:44)
[2023-01-26] MEDS: VALPROIC ACID 250 MG/5 ML UDC GT SCH ×3 (08:17→16:44)
[2023-01-26] MEDS: methylPREDNISolone SOD SUCC 125 MG/2ML VIAL IV SCH ×2 (08:17→16:43)
[2023-01-26] MEDS: LEVETIRACETAM SOL (5 ML) 100 MG/ML UDC GT SCH ×2 (08:17→21:17)
[2023-01-26] MEDS: ENOXAPARIN SODIUM 40 MG/0.4 ML DISP.SYRIN SQ SCH (08:18)
[2023-01-26] MEDS: PROPOFOL 100 ML IV PRN ×2 (08:51→16:42)
--- NOTE | 2023-01-26 09:00 | NUR ---
ICU/RN DUE MEDS ARE GIVEN ORDERED.PT IS ON DIPRIVAN DRIP., FOR AGITATION AND RESPIRATION CONTROL. PT IS AWAKE.CHRONIC TRACH ON THE VENT AC MODE FIO2-40%,SAT O2-98%.V/S STABLE,AFEBRILE NO PAIN REPORTED AT THIS TIME.LABS REVIEW.MD AWARE.SUCTION PROVIDED.REPOSITION FOR COMFORT.
[2023-01-26] MEDS: LEVOCARNITINE 10% GT SCH ×2 (10:53→16:46)
[2023-01-26 11:48] LABS: BAND % (MANUAL) 1 % (0.0-5.0); BASOPHILS % (MANUAL) 0 % (0.0-2.0); EOSINOPHILS % (MANUAL) 0 % (0-4); LYMPHOCYTES % (MANUAL) 36 % (16-48); MONOCYTES % (MANUAL) 10 % (0-11.0); NEUTROPHILS % (MANUAL) 53 (42-76)
[2023-01-26] MEDS: DIAZEPAM 2 MG TABLET GT SCH (12:40)
[2023-01-26] MEDS: JEVITY 1.2 CAL 1,000 ML BOTTLE GT SCH (16:42)
--- NOTE | 2023-01-26 17:00 | NUR ---
ICU/RN PM CARE PROVIDED. DUE MEDS ARE GIVEN ORDERED.SUCTION PROVIDED REPOSITION FOR COMFORT.F/C 1000 ML OUTPUT.
--- NOTE | 2023-01-26 19:45 | NUR ---
ICU/TICKET SELLER RECEIVED REPORT FROM DAY NURSE. SEE FLOWSHEET FOR ASSESSMENT. SEE IV SPREAD SHEET FOR IV'S AND TITRATIONS. PT WAS TURNED AND REPOSIONED FOR COMFORT AND CARE
[2023-01-27] VITALS (50 sets, daily range): BP systolic 97–172; BP diastolic 29–99
[2023-01-27] MEDS: DIAZEPAM 2 MG TABLET GT SCH ×3 (00:18→23:31)
[2023-01-27] MEDS: IV NS 0.9% 1,000 ML IV PRN ×2 (04:30→23:31)
[2023-01-27] MEDS: PROPOFOL 100 ML IV PRN ×3 (04:31→23:08)
[2023-01-27 04:49] LABS: BASOPHILS % (AUTO) 0.1 % (0.0-2.0); EOSINOPHILS % (AUTO) 0.1 % (0.0-6.0); HEMATOCRIT 33 % (33-45); HEMOGLOBIN 11.1 g/dL (11.5-14.8); LYMPHOCYTES # (AUTO) 2.9 K/uL (0.8-4.8); LYMPHOCYTES % (AUTO) 38.1 % (20.0-44.0); MEAN CORPUSCULAR HGB CONC 34 g/dl (31.0-36.0); MEAN CORPUSCULAR VOLUME 93 fL (82-100); MONOCYTES # (AUTO) 1.2 K/uL (0.1-1.30); MONOCYTES % (AUTO) 15.6 % (2.0-12.0); NEUTROPHILS # (AUTO) 3.4 K/uL (1.8-8.9); NEUTROPHILS % (AUTO) 46.1 % (43.0-81.0); PLATELET COUNT (AUTO) 410 K/uL (150-450); RED BLOOD CELL COUNT(AUTO) 3.52 MIL/uL (4.0-5.2); WHITE BLOOD COUNT (AUTO) 7.5 K/uL (4.3-11.0)
[2023-01-27 05:01] LABS: ALBUMIN 2.2 g/dL (3.4-5.0); BILIRUBIN,TOTAL 0.1 mg/dL (0.2-1.0); CALCIUM, SERUM 8.8 mg/dL (8.5-10.1); CREATININE 0.3 mg/dL (0.6-1.3); MAGNESIUM 2.2 mg/dL (1.8-2.4); PHOSPHORUS 5.3 mg/dL (2.5-4.9); POTASSIUM 3.9 mmol/L (3.5-5.1); TOTAL PROTEIN, SERUM 6.2 g/dL (6.4-8.2)
[2023-01-27] MEDS: AZTREONAM 1 G in IV NS 0.9% 100 ML IV SCH ×3 (06:10→23:08)
--- NOTE | 2023-01-27 07:00 | NUR ---
RN NOTES RECEIVED PT ON BED, VENT/TRACH DEPENDENT, TOLERAING VENT SETTING WELL, LARGE AMOUNT OF SECRETION ORALLY NASALLY NOTED, SUCTION DONE PRN, PT IS SEDATED ON DIPRIVAN AT 20 MCG/KG/MIN RUNNING , TOLERATING TF WELL , NO RESIDUAL NOTED, HOB ELEVATED, SR UP x3, CALL LIGHT WITHIN EASY REACH, BED LOCKED AND IN LOWEST POSITION, CONTINUE TO MONITOR.
[2023-01-27] MEDS: LORAZEPAM INJ 2 MG/ML VIAL IV PRN ×2 (07:15→16:43)
[2023-01-27] MEDS: BUDESONIDE RESPULE INH 0.25 MG/2 ML AMPUL.NEB NEB SCH ×2 (07:21→19:30)
[2023-01-27] MEDS: ALBUTEROL FS 2.5 MG/0.5 ML VIAL.NEB NEB SCH ×2 (07:22→19:28)
[2023-01-27] MEDS: VALPROIC ACID 250 MG/5 ML UDC GT SCH ×3 (08:15→16:33)
[2023-01-27] MEDS: RUFINAMIDE 40 MG/ML GT SCH ×2 (08:15→16:34)
[2023-01-27] MEDS: LEVOCARNITINE 10% GT SCH ×2 (08:15→16:34)
[2023-01-27] MEDS: methylPREDNISolone SOD SUCC 125 MG/2ML VIAL IV SCH ×2 (08:16→16:35)
[2023-01-27] MEDS: LEVETIRACETAM SOL (5 ML) 100 MG/ML UDC GT SCH ×2 (08:16→21:23)
[2023-01-27] MEDS: ENOXAPARIN SODIUM 40 MG/0.4 ML DISP.SYRIN SQ SCH (08:16)
--- NOTE | 2023-01-27 12:00 | NUR ---
RN NOTES TRACH CARE DONE PRN , CONTINUE TO MONITOR .
[2023-01-27 13:29] LABS: BASOPHILS % (MANUAL) 0 % (0.0-2.0); EOSINOPHILS % (MANUAL) 0 % (0-4); LYMPHOCYTES % (MANUAL) 38 % (16-48); MONOCYTES % (MANUAL) 14 % (0-11.0); NEUTROPHILS % (MANUAL) 48 (42-76)
[2023-01-27] MEDS: JEVITY 1.2 CAL 1,000 ML BOTTLE GT SCH (14:04)
--- NOTE | 2023-01-27 16:43 | NUR ---
RN NOTES PT RESTLESS , ATIVAN GIVEN ORDERED
--- NOTE | 2023-01-27 18:16 | NUR ---
RN NOTES NO SIGNFICANT CHANGES NOTED ON THIS SHIFT, PT SEDATED ON DIPRIVAN AT 30MCG/KG/MIN, ON TELE SR , TRACH CARE AND MOUTH CARE DONE PRN, SUPPORTIVE FAMILY AT THE BEDSIDE, SR UP x3 CALL LIGHT WITHIN EASY REACH, WILL ENDORSE TO MANAGER ASSESSMENT FOR CONTINUITY OF CARE .
[2023-01-27] MEDS: MAGNESIUM HYDROXIDE 30 ML UDC PO PRN (19:03)
--- NOTE | 2023-01-27 19:45 | NUR ---
ICU/SOFTWARE DEVELOPMENT ADVISOR RECIEVED REPORT FROM DAY. SEE FLOWSHEET FOR ASSESSMENT. AND IV SPREAD SHEET FOR IV'S AND TITRATION. PT WAS TURNED AND REPOSITIONED FOR COMFORT AND CARE.
[2023-01-28] VITALS (43 sets, daily range): BP systolic 95–142; BP diastolic 48–94
--- NOTE | 2023-01-28 | NUR ---
ICU/SUPERVISOR PUTTY AND CALUKING WOUND WAS FOUND ON PT TO THE RIGHT LOWER BUTTOCK, APPEARS A SCRATCH. PHOTO WAS DONE AND WOUND NURSE CONSULT WAS DONE
[2023-01-28 04:37] LABS: BASOPHILS % (AUTO) 0.3 % (0.0-2.0); EOSINOPHILS % (AUTO) 0.1 % (0.0-6.0); HEMATOCRIT 32 % (33-45); HEMOGLOBIN 11.7 g/dL (11.5-14.8); LYMPHOCYTES # (AUTO) 3.1 K/uL (0.8-4.8); LYMPHOCYTES % (AUTO) 36.3 % (20.0-44.0); MEAN CORPUSCULAR HGB CONC 37 g/dl (31.0-36.0); MEAN CORPUSCULAR VOLUME 92 fL (82-100); MONOCYTES % (AUTO) 11.5 % (2.0-12.0); NEUTROPHILS # (AUTO) 4.5 K/uL (1.8-8.9); NEUTROPHILS % (AUTO) 51.8 % (43.0-81.0); PLATELET COUNT (AUTO) 434 K/uL (150-450); RED BLOOD CELL COUNT(AUTO) 3.43 MIL/uL (4.0-5.2); WHITE BLOOD COUNT (AUTO) 8.7 K/uL (4.3-11.0)
[2023-01-28 06:05] LABS: ALBUMIN 2.1 g/dL (3.4-5.0); BILIRUBIN,TOTAL 0.1 mg/dL (0.2-1.0); CALCIUM, SERUM 8.7 mg/dL (8.5-10.1); CREATININE 0.2 mg/dL (0.6-1.3); POTASSIUM 4.1 mmol/L (3.5-5.1); TOTAL PROTEIN, SERUM 5.7 g/dL (6.4-8.2)
[2023-01-28] MEDS: LEVETIRACETAM SOL (5 ML) 100 MG/ML UDC GT SCH ×2 (08:16→20:34)
[2023-01-28] MEDS: VALPROIC ACID 250 MG/5 ML UDC GT SCH ×3 (08:16→16:48)
[2023-01-28] MEDS: LEVOCARNITINE 10% GT SCH ×2 (08:17→16:49)
[2023-01-28] MEDS: methylPREDNISolone SOD SUCC 125 MG/2ML VIAL IV SCH ×2 (08:18→16:49)
[2023-01-28] MEDS: RUFINAMIDE 40 MG/ML GT SCH ×2 (08:18→16:50)
[2023-01-28] MEDS: BUDESONIDE RESPULE INH 0.25 MG/2 ML AMPUL.NEB NEB SCH ×2 (08:21→19:25)
[2023-01-28] MEDS: ALBUTEROL FS 2.5 MG/0.5 ML VIAL.NEB NEB SCH ×2 (08:21→19:25)
[2023-01-28] MEDS: ENOXAPARIN SODIUM 40 MG/0.4 ML DISP.SYRIN SQ SCH (08:39)
[2023-01-28] MEDS: PROPOFOL 100 ML IV PRN (12:06)
[2023-01-28] MEDS: DIAZEPAM 2 MG TABLET GT SCH ×2 (12:07→23:09)
[2023-01-28] MEDS: JEVITY 1.2 CAL 1,000 ML BOTTLE GT SCH (14:08)
[2023-01-28] MEDS: IV NS 0.9% 1,000 ML IV PRN (16:50)
--- NOTE | 2023-01-28 19:02 | NUR ---
NO SIGNIFICANT CHANGES NOTED DURING THE SHIFT. NO SEIZURE ACTIVITY NOTED, HOURLY/PRN ROUNDING DONE BY PONDMAN. ENDORSED TO LIBORIO FOR CONTINUITY OF CARE.
--- NOTE | 2023-01-28 20:00 | NUR ---
POST DOCTORAL RESEARCHER TITRATED DIPRIVAN OFF; RESPIRATIONS 16-22
[2023-01-29] VITALS (20 sets, daily range): BP systolic 96–143; BP diastolic 45–100
[2023-01-29 03:27] LABS: BASOPHILS # (AUTO) 0.1 K/uL (0.0-0.2); BASOPHILS % (AUTO) 0.7 % (0.0-2.0); EOSINOPHILS % (AUTO) 0.6 % (0.0-6.0); HEMATOCRIT 32 % (33-45); HEMOGLOBIN 10.5 g/dL (11.5-14.8); LYMPHOCYTES # (AUTO) 1.4 K/uL (0.8-4.8); LYMPHOCYTES % (AUTO) 16.3 % (20.0-44.0); MEAN CORPUSCULAR HGB CONC 33 g/dl (31.0-36.0); MEAN CORPUSCULAR VOLUME 93 fL (82-100); MONOCYTES # (AUTO) 0.6 K/uL (0.1-1.30); MONOCYTES % (AUTO) 7.7 % (2.0-12.0); NEUTROPHILS # (AUTO) 6.2 K/uL (1.8-8.9); NEUTROPHILS % (AUTO) 74.7 % (43.0-81.0); PLATELET COUNT (AUTO) 419 K/uL (150-450); RED BLOOD CELL COUNT(AUTO) 3.41 MIL/uL (4.0-5.2); WHITE BLOOD COUNT (AUTO) 8.3 K/uL (4.3-11.0)
[2023-01-29 03:41] LABS: ALBUMIN 2.1 g/dL (3.4-5.0); BILIRUBIN,TOTAL 0.2 mg/dL (0.2-1.0); CALCIUM, SERUM 8.6 mg/dL (8.5-10.1); CREATININE 0.2 mg/dL (0.6-1.3); MAGNESIUM 2.2 mg/dL (1.8-2.4); PHOSPHORUS 5.1 mg/dL (2.5-4.9); POTASSIUM 3.9 mmol/L (3.5-5.1); TOTAL PROTEIN, SERUM 5.7 g/dL (6.4-8.2)
[2023-01-29] MEDS: LORAZEPAM INJ 2 MG/ML VIAL IV PRN (05:26)
--- NOTE | 2023-01-29 05:31 | NUR ---
MACHINERY ERECTOR AFTER BED BATH PT WAS NOTED TO BE AGITATE PULLING HAIR AND LINES/TUBES. HR NOTED 140s. ATIVAN GIVEN ORDERED.
--- NOTE | 2023-01-29 07:15 | NUR ---
PACKER AND CARRY OUT NOte Patient is resting in bed. GCS E4VTM5, bilateral pupils 3mm PEARRLA. Cardiac monitors hwoed SR HR 69/min. MAP>65mmhg without vasopressors. Supported by ventilator, AC mode with rate 16/min, TV 275mL, PEEP 5cmH2O. SpO2 100% with FiO2 0.4. Right upper arm midline is dry and intact, with NS running at 50mL/hr. Oral care and repositioning is done. Will continue monitoring and care.
--- NOTE | 2023-01-29 07:26 | NUR ---
WOUND CARE CONSULT: PT PRESENTS WITH DRY AREA OF EXCORIATION TO RT BUTTOCK. NO ERYTHEMA OR DRAINAGE NOTED. RECOMMENDATIONS MADE FOR SKIN PROTECTION AND DISCUSSED WITH NURSING STAFF. [facility] IN AGREEMENT WITH PLAN OF CARE.
[2023-01-29] MEDS: ALBUTEROL FS 2.5 MG/0.5 ML VIAL.NEB NEB SCH ×2 (07:49→19:57)
[2023-01-29] MEDS: BUDESONIDE RESPULE INH 0.25 MG/2 ML AMPUL.NEB NEB SCH ×2 (07:49→19:57)
[2023-01-29] MEDS: LEVETIRACETAM SOL (5 ML) 100 MG/ML UDC GT SCH ×2 (08:27→20:39)
[2023-01-29] MEDS: VALPROIC ACID 250 MG/5 ML UDC GT SCH ×3 (08:27→17:13)
[2023-01-29] MEDS: LEVOCARNITINE 10% GT SCH ×2 (08:28→17:13)
[2023-01-29] MEDS: RUFINAMIDE 40 MG/ML GT SCH ×2 (08:28→17:14)
--- NOTE | 2023-01-29 08:30 | NUR ---
WRECKER DRIVER NOte Inquired Dr. Rice about the need to continue IV fluids as patient has been receiving G-tube feeding well. He said to discontinue IV fluid, done as ordered.
[2023-01-29] MEDS: methylPREDNISolone SOD SUCC 125 MG/2ML VIAL IV SCH ×2 (08:45→17:14)
[2023-01-29] MEDS: DIAZEPAM 2 MG TABLET GT SCH ×2 (12:15→23:04)
--- NOTE | 2023-01-29 13:00 | NUR ---
WATER RESOURCES PROJECT MANAGER Note Informed KNOTTER HAND Lilian about the reduced bleeding from tracheostomy tube and that the sputum turns pinkish instead of fresh blood. Inquired about resuming lovenox and she said to proceed and avoid frequent suctioning. Would follow as ordered.
[2023-01-29] MEDS: JEVITY 1.2 CAL 1,000 ML BOTTLE GT SCH (17:15)
[2023-01-29] MEDS: ENOXAPARIN SODIUM 40 MG/0.4 ML DISP.SYRIN SQ SCH (17:17)
--- NOTE | 2023-01-29 17:57 | NUR ---
rn note received report from Namita GROCERY PACKER for contuity of care
--- NOTE | 2023-01-29 18:00 | NUR ---
EARLY CHILDHOOD SPECIAL EDUCATOR Note Patient is transferred to [facility] room 114. Patient's mother was notified of the transfer earlier. SpO2 all along was >95% with bagging. RT Gokul connected patietn back to the ventilator. Handover was given to EFREN Whitt.
--- NOTE | 2023-01-29 19:32 | NUR ---
telecommunications project manager closing note pt opens eyes. pt nonverbal. pt vent/trach dependent tolerating vent settings well. hob elevated at all times. pt on tele monitor. pt has r upper arm midline.iv intact, patent and flushing well. pt has Gage catheter. yellow color draining to gravity. pt has gtube. gtube intact, no residual volume noted. pt has edema on lower extremities. elevated extremities on pillows. family at bedside. all safety measures in place. bed locked in lowest positions. side rails up x2. bed alarm on. pt on seizures precautions, padded side rails. endorsed to box icer rn for conutity of care
--- NOTE | 2023-01-29 20:47 | NUR ---
REMOVED VALIUM 2MG ACCIDENTALLY, IN PIXIS SHOWS MEDICATIONS TO ADMINISTER KEPPRA AND VALIUM, WHEN ABOUT TO SCAN IN THE EMAR I SUPPOSE TO ADMINISTER VALIUM AT MID NIGHT LATER TONIGHT 0000, INFORMED [facility] APELIAN PHARMACIST SINCE I ALREADY WASTE IT WITH SHANNA OLIVER RN, ASKED [facility] FOR SUGGESTION EITHER RETURN IT OR AND REMOVE ANOTHER LATER, AND PER [facility] OF TO GIVE THAT ONE LATER, SO ILL KEEP DOSE TO ADMINSITER LATER, CASEY BENITEZ AWARE, BENITO SCHWARTZ AWARE.
[2023-01-30] VITALS: BP 97/65
[2023-01-30 04:00] VITALS: BP 115/91
--- NOTE | 2023-01-30 06:30 | NUR ---
END OF SHIFT, PATIENT IN BED, OPEN EYES SPONTANEOUSLY, CONTINUE ON MECHANICAL VENTILATOR, NO SOB NOTED/ACUTE DISTRESS NOTED DURING THE NIGHT, WITH OPTIMAL O2 SAT LEVEL, VITAL SIGNS WNL, AFEBRILE, NSR IN TELE MONITOR, NO SEIZURE ACTIVITY NOTED DURING THE NIGHT, ON SEIZURE PRECAUTION, GT IN PLACED AND GTF INFUSING ORDERED, PT TOLERATED WELL, OTHERWISE NO SIGNIFICANT CHANGE IN CONDITION DURING THE NIGHT, HOB ELEVATED AT ALL TIMES, BED ALARM ON, BED LOCKED AND IN LOWEST POSITION, REPOSITIONED Q2 HRS AND PRN, WILL ENDORSE CONTINUITY OF CARE TO ONCOMING NURSE
[2023-01-30 06:35] LABS: BASOPHILS % (AUTO) 0.1 % (0.0-2.0); EOSINOPHILS % (AUTO) 0.3 % (0.0-6.0); HEMATOCRIT 36 % (33-45); HEMOGLOBIN 11.6 g/dL (11.5-14.8); LYMPHOCYTES # (AUTO) 2.8 K/uL (0.8-4.8); LYMPHOCYTES % (AUTO) 24.7 % (20.0-44.0); MEAN CORPUSCULAR HGB CONC 33 g/dl (31.0-36.0); MEAN CORPUSCULAR VOLUME 96 fL (82-100); MONOCYTES # (AUTO) 1.1 K/uL (0.1-1.30); MONOCYTES % (AUTO) 9.3 % (2.0-12.0); NEUTROPHILS # (AUTO) 7.6 K/uL (1.8-8.9); NEUTROPHILS % (AUTO) 65.6 % (43.0-81.0); PLATELET COUNT (AUTO) 485 K/uL (150-450); RED BLOOD CELL COUNT(AUTO) 3.73 MIL/uL (4.0-5.2); WHITE BLOOD COUNT (AUTO) 11.5 K/uL (4.3-11.0)
[2023-01-30 06:54] LABS: ALBUMIN 2.5 g/dL (3.4-5.0); BILIRUBIN,TOTAL 0.3 mg/dL (0.2-1.0); CALCIUM, SERUM 9.5 mg/dL (8.5-10.1); CREATININE 0.2 mg/dL (0.6-1.3); MAGNESIUM 2.4 mg/dL (1.8-2.4); PHOSPHORUS 5.3 mg/dL (2.5-4.9); TOTAL PROTEIN, SERUM 6.7 g/dL (6.4-8.2)
--- NOTE | 2023-01-30 07:30 | NUR ---
RN OPENING NOTE PT OBSERVED IN BED WITH HOB >35 DEGREES. PT IS ON MECHANICAL VENT WITH ALL PRESCRIBED SETTINGS TOLERATING WELL 100%. PT IS NON VERBAL AND OPENS EYES. FC IS IN PLACE DRAINING URINE TO GRAVITY. PEG PLACEMENT INFUSING WITH JEVITY 1.2 @40ML/HR. IV ACCESS R UA MIDLINE WITH NO FLUIDS INFUSING AT THIS TIME. BED IS LOCKED IN LOWEST POSITION AND ALL HOSPITAL SAFETY MEASURES ARE IN PLACE WILL CONTINUE TO MONITOR THIS SHIFT.
[2023-01-30 08:00] VITALS: BP 115/71
[2023-01-30] MEDS: ALBUTEROL FS 2.5 MG/0.5 ML VIAL.NEB NEB SCH ×2 (08:04→19:53)
[2023-01-30] MEDS: BUDESONIDE RESPULE INH 0.25 MG/2 ML AMPUL.NEB NEB SCH ×2 (08:04→19:53)
[2023-01-30] MEDS: methylPREDNISolone SOD SUCC 125 MG/2ML VIAL IV SCH ×2 (08:05→16:11)
[2023-01-30] MEDS: LEVETIRACETAM SOL (5 ML) 100 MG/ML UDC GT SCH ×2 (08:06→20:16)
[2023-01-30] MEDS: VALPROIC ACID 250 MG/5 ML UDC GT SCH ×3 (08:06→16:11)
[2023-01-30] MEDS: LORAZEPAM INJ 2 MG/ML VIAL IV PRN ×4 (08:06→21:56)
--- NOTE | 2023-01-30 08:06 | NUR ---
RN NOTE: PRN ATIVAN 1MG ATIVAN ADMINISTERED AT THIS TIME
[2023-01-30] MEDS: ENOXAPARIN SODIUM 40 MG/0.4 ML DISP.SYRIN SQ SCH (08:11)
[2023-01-30] MEDS: RUFINAMIDE 40 MG/ML GT SCH ×2 (08:13→16:21)
[2023-01-30] MEDS: LEVOCARNITINE 10% GT SCH ×2 (08:13→16:21)
--- NOTE | 2023-01-30 08:39 | NUR ---
RN NOTE: VALIUM VALIUM TAKEN OUT TOO EARLY. DOSE DUE AT 1200. MED WASTE RECORDED. WILL HOLD UNTIL SCHEDULE TIME BECAUSE UNABLE TO RETURN DUE TO PARTIAL DOSE.
[2023-01-30] MEDS: DIAZEPAM 2 MG TABLET GT SCH ×2 (11:24→23:48)
[2023-01-30 12:00] VITALS: BP 102/69
[2023-01-30 16:00] VITALS: BP 102/64
--- NOTE | 2023-01-30 17:06 | NUR ---
RN NOTE: NEURO PER NEURO, MESSAGED NEPHRO ABOUT LOW SODIUM AND FOR LEVEL CORRECTION
--- NOTE | 2023-01-30 18:51 | NUR ---
RN OPENING NOTE PT IN BED WITH HOB 40 DEGREES. PT IS ON MECHANICAL VENT WITH ALL PRESCRIBED SETTINGS TOLERATING WELL 100%. PT IS NON VERBAL AND OPENS EYES. FC IS IN PLACE DRAINING URINE TO GRAVITY -1200ML. PEG PLACEMENT INFUSING WITH JEVITY 1.2 @40ML/HR. IV ACCESS R UA MIDLINE WITH NO FLUIDS INFUSING AT THIS TIME. BED IS LOCKED IN LOWEST POSITION AND ALL HOSPITAL SAFETY MEASURES ARE IN PLACE WILL ENDORSE TO UNLOADING CHECKER NURSE FOR JR.
--- NOTE | 2023-01-30 19:30 | NUR ---
RN OPENING NOTE RECEIVED PATIENT IN BED, NONVERBAL BUT OPENS EYES. ON MV WITH TRACH SHILEY 6, MV PRESCRIBED SETTINGS FOLLOWS: AC 16, TV 275, FIO2 40, PEEP 5. TOLERATING WELL, O2 SAT 100%. IV ACCESS ON PARVIZ MIDLINE S/L. ETIENNE CATHETER IN PLACE DRAINING CLEAR YELLOW URINE TO GRAVITY. GTF RUNNING JEVITY 1.2 @ 40ML/HR. SAFETY MEASURES IN PLACE: BED LOCKED AND IN LOWEST POSITION, SIDE RAILS UP X3, HOB ELEVATED.
[2023-01-30 20:00] VITALS: BP 132/88
--- NOTE | 2023-01-30 20:21 | NUR ---
RN NOTE PRN ATIVAN 1MG ADMINISTERED.
--- NOTE | 2023-01-30 21:59 | NUR ---
RN NOTE PRN ATIVAN 1MG ADMINISTERED.
[2023-01-31] VITALS: BP 104/53
[2023-01-31] MEDS: LORAZEPAM INJ 2 MG/ML VIAL IV PRN ×3 (02:46→07:53)
--- NOTE | 2023-01-31 02:50 | NUR ---
RN NOTE PRN ATIVAN 1MG ADMINISTERED.
[2023-01-31 04:00] VITALS: BP 145/82
--- NOTE | 2023-01-31 05:50 | NUR ---
RN NOTE PRN ATIVAN 1MG ADMINISTERED.
[2023-01-31 06:12] LABS: BASOPHILS % (AUTO) 0.1 % (0.0-2.0); EOSINOPHILS % (AUTO) 0.2 % (0.0-6.0); HEMATOCRIT 35 % (33-45); HEMOGLOBIN 11.6 g/dL (11.5-14.8); LYMPHOCYTES # (AUTO) 2.4 K/uL (0.8-4.8); LYMPHOCYTES % (AUTO) 19.2 % (20.0-44.0); MEAN CORPUSCULAR HGB CONC 33 g/dl (31.0-36.0); MEAN CORPUSCULAR VOLUME 93 fL (82-100); MONOCYTES # (AUTO) 1.2 K/uL (0.1-1.30); MONOCYTES % (AUTO) 9.6 % (2.0-12.0); NEUTROPHILS # (AUTO) 8.8 K/uL (1.8-8.9); NEUTROPHILS % (AUTO) 70.9 % (43.0-81.0); PLATELET COUNT (AUTO) 538 K/uL (150-450); RED BLOOD CELL COUNT(AUTO) 3.74 MIL/uL (4.0-5.2); WHITE BLOOD COUNT (AUTO) 12.4 K/uL (4.3-11.0)
[2023-01-31 06:31] LABS: ALBUMIN 2.8 g/dL (3.4-5.0); BILIRUBIN,TOTAL 0.3 mg/dL (0.2-1.0); CALCIUM, SERUM 9.6 mg/dL (8.5-10.1); CREATININE 0.2 mg/dL (0.6-1.3); MAGNESIUM 2.3 mg/dL (1.8-2.4); PHOSPHORUS 4.8 mg/dL (2.5-4.9); POTASSIUM 4.2 mmol/L (3.5-5.1); TOTAL PROTEIN, SERUM 7.2 g/dL (6.4-8.2)
--- NOTE | 2023-01-31 06:54 | NUR ---
RN CLOSING NOTE PATIENT IN BED, NONVERBAL BUT OPENS EYES. ON MV WITH TRACH SHILEY 6, MV PRESCRIBED SETTINGS FOLLOWS: AC 16, TV 275, FIO2 40, PEEP 5. TOLERATING WELL, O2 SAT 100%. IV ACCESS ON PARVIZ MIDLINE S/L, INTACT AND FLUSHES WELL. ETIENNE CATHETER IN PLACE DRAINING CLEAR YELLOW URINE TO GRAVITY. GTF RUNNING JEVITY 1.2 @ 40ML/HR. ALL DUE MEDS WERE GIVEN AND NEEDS ATTENDED. SAFETY MEASURES MAINTAINED: BED LOCKED AND IN LOWEST POSITION, SIDE RAILS UP X3, HOB ELEVATED. WILL ENDORSE TO ONCOMING NURSE FOR JR.
[2023-01-31 08:00] VITALS: BP 149/64
[2023-01-31] MEDS: ALBUTEROL FS 2.5 MG/0.5 ML VIAL.NEB NEB SCH ×2 (08:15→20:04)
[2023-01-31] MEDS: VALPROIC ACID 250 MG/5 ML UDC GT SCH ×3 (08:15→16:12)
[2023-01-31] MEDS: BUDESONIDE RESPULE INH 0.25 MG/2 ML AMPUL.NEB NEB SCH ×2 (08:15→20:03)
[2023-01-31] MEDS: LEVETIRACETAM SOL (5 ML) 100 MG/ML UDC GT SCH (08:15)
[2023-01-31] MEDS: methylPREDNISolone SOD SUCC 125 MG/2ML VIAL IV SCH (08:16)
[2023-01-31] MEDS: ENOXAPARIN SODIUM 40 MG/0.4 ML DISP.SYRIN SQ SCH (08:19)
[2023-01-31] MEDS: LEVOCARNITINE 10% GT SCH ×2 (08:58→16:13)
[2023-01-31] MEDS: RUFINAMIDE 40 MG/ML GT SCH ×2 (08:59→16:12)
[2023-01-31] MEDS: ACETAMINOPHEN 325 MG TABLET PO PRN (10:05)
[2023-01-31] MEDS: MAGNESIUM HYDROXIDE 30 ML UDC PO PRN (10:07)
[2023-01-31] MEDS ORDERED: LORAZEPAM INJ 2 MG/ML VIAL IV PRN (11:00)
[2023-01-31 12:00] VITALS: BP 101/53
[2023-01-31] MEDS: DIAZEPAM 2 MG TABLET GT SCH ×2 (12:35→23:15)
[2023-01-31] MEDS ORDERED: FUROSEMIDE 20 MG/2 ML VIAL IV ONE (14:00)
[2023-01-31] MEDS: SODIUM CHLORIDE 1000 MG TABLET PO SCH (15:57)
[2023-01-31 16:00] VITALS: BP 103/52
[2023-01-31] MEDS: JEVITY 1.2 CAL 1,000 ML BOTTLE GT SCH (17:37)
--- NOTE | 2023-01-31 18:00 | NUR ---
PATIENT'S MOTHER BROUGHT THE HOME MEDICATION TAKEN TO THE PHARMACY.
--- NOTE | 2023-01-31 19:26 | NUR ---
RN CLOSING NOTE PATIENT IN BED, NONVERBAL BUT OPENS EYES. ON MV WITH TRACH SHILEY 6, MV PRESCRIBED SETTINGS FOLLOWS: AC 16, TV 275, FIO2 40, PEEP 5. TOLERATING WELL, O2 SAT 100%. IV ACCESS ON PARVIZ MIDLINE S/L, INTACT AND FLUSHES WELL. ETIENNE CATHETER IN PLACE DRAINING CLEAR YELLOW URINE TO GRAVITY. GTF RUNNING JEVITY 1.2 @ 40ML/HR. ALL DUE MEDS WERE GIVEN AND NEEDS ATTENDED. SEIZURE PRECAUTIONS IMPLEMENTED, NO SEIZURE IN AM SHIFT. SAFETY MEASURES MAINTAINED: BED LOCKED AND IN LOWEST POSITION, SIDE RAILS UP X3, HOB ELEVATED. WILL ENDORSE TO THE DIGITAL SALES DIRECTOR NURSE FOR JR
--- NOTE | 2023-01-31 19:30 | NUR ---
RN OPENING NOTES RECEIVED PATIENT IN BED, NONVERBAL BUT OPENS EYES. ON MV WITH TRACH SHILEY 6, MV PRESCRIBED SETTINGS FOLLOWS: AC 16, TV 275, FIO2 21, PEEP 5. TOLERATING WELL, O2 SAT 100%. IV ACCESS ON PARVIZ MIDLINE S/L, INTACT AND FLUSHES WELL. ETIENNE CATHETER IN PLACE DRAINING CLEAR YELLOW URINE TO GRAVITY. GTF RUNNING JEVITY 1.2 @ 40ML/HR. TOLERATING WELL, NO RESIDUAL NOTED. SAFETY MEASURES IN PLACE: BED LOCKED AND IN LOWEST POSITION, SIDE RAILS UP X3 AND PADDED, HOB ELEVATED.
[2023-01-31 20:00] VITALS: BP 97/46
--- NOTE | 2023-01-31 20:04 | NUR ---
RCVD PT TRACHED SHILEY 6 ON VENT WITH THE SETTINGS OF AC 16,VT 275, FIO2 21% PEEP 5. BREATHING TX GIVEN. PER MD'S ORDER , NO ADVERSE REACTION NOTED. VENT PLUGGED INTO RED OUTLET, VENT ALARMS ON AND AUDIBLE. AMBU BAG AT BEDSIDE. NO RESPIRATORY DISTRESS NOTED AT THIS TIME. WILL CONTINUE TO MONITOR T/O SHIFT.
[2023-01-31] MEDS ORDERED: LEVETIRACETAM SOL (5 ML) 100 MG/ML UDC GT SCH (21:00)
--- NOTE | 2023-01-31 23:25 | NUR ---
INCREASED FIO2 28% , DUE TO SPO2 87%. CHARGE NURSE NOTIFIED
[2023-02-01] VITALS: BP 104/67
[2023-02-01 04:00] VITALS: BP 102/81
[2023-02-01 06:44] LABS: BASOPHILS % (AUTO) 0.2 % (0.0-2.0); EOSINOPHILS % (AUTO) 0.3 % (0.0-6.0); HEMATOCRIT 35 % (33-45); HEMOGLOBIN 11.2 g/dL (11.5-14.8); LYMPHOCYTES # (AUTO) 1.8 K/uL (0.8-4.8); LYMPHOCYTES % (AUTO) 13.2 % (20.0-44.0); MEAN CORPUSCULAR HGB CONC 33 g/dl (31.0-36.0); MEAN CORPUSCULAR VOLUME 94 fL (82-100); MONOCYTES # (AUTO) 1.2 K/uL (0.1-1.30); MONOCYTES % (AUTO) 8.8 % (2.0-12.0); NEUTROPHILS # (AUTO) 10.3 K/uL (1.8-8.9); NEUTROPHILS % (AUTO) 77.5 % (43.0-81.0); PLATELET COUNT (AUTO) 495 K/uL (150-450); RED BLOOD CELL COUNT(AUTO) 3.69 MIL/uL (4.0-5.2); WHITE BLOOD COUNT (AUTO) 13.3 K/uL (4.3-11.0)
[2023-02-01 07:12] LABS: ALBUMIN 2.8 g/dL (3.4-5.0); BILIRUBIN,TOTAL 0.3 mg/dL (0.2-1.0); CALCIUM, SERUM 9.6 mg/dL (8.5-10.1); CREATININE 0.2 mg/dL (0.6-1.3); MAGNESIUM 2.4 mg/dL (1.8-2.4); PHOSPHORUS 5.1 mg/dL (2.5-4.9); POTASSIUM 4.3 mmol/L (3.5-5.1); TOTAL PROTEIN, SERUM 7.2 g/dL (6.4-8.2)
--- NOTE | 2023-02-01 07:25 | NUR ---
RN CLOSING NOTES PATIENT IN BED, NONVERBAL BUT OPENS EYES. ON MV WITH TRACH SHILEY 6, MV PRESCRIBED SETTINGS FOLLOWS: AC 16, TV 275, FIO2 28, PEEP 5. TOLERATING WELL, O2 SAT 97%. IV ACCESS ON PARVIZ MIDLINE S/L, INTACT AND FLUSHES WELL. ETIENNE CATHETER IN PLACE DRAINING CLEAR YELLOW URINE TO GRAVITY. GTF RUNNING JEVITY 1.2 @ 40ML/HR. TOLERATING WELL, NO RESIDUAL NOTED. ALL DUE MEDS WERE GIVEN AND NEEDS ATTENDED. SAFETY MEASURES IN PLACE: BED LOCKED AND IN LOWEST POSITION, SIDE RAILS UP X3 AND PADDED, HOB ELEVATED.
--- NOTE | 2023-02-01 07:25 | NUR ---
RN NOTE PRN ATIVAN 1MG ADMINISTERED.
--- NOTE | 2023-02-01 07:59 | NUR ---
MOUSTAPHA RN NOTES PATIENT IN BED, NONVERBAL BUT OPENS EYES. ON MV WITH TRACH SHILEY 6, MV PRESCRIBED SETTINGS FOLLOWS: AC 16, TV 275, FIO2 28, PEEP 5. TOLERATING WELL, O2 SAT 97%. IV ACCESS ON PARVIZ MIDLINE S/L, INTACT AND FLUSHES WELL. ETIENNE CATHETER IN PLACE DRAINING CLEAR YELLOW URINE TO GRAVITY. GTF RUNNING JEVITY 1.2 @ 40ML/HR. TOLERATING WELL, NO RESIDUAL NOTED. ALL DUE MEDS WERE GIVEN AND NEEDS ATTENDED. SAFETY MEASURES IN PLACE: BED LOCKED AND IN LOWEST POSITION, SIDE RAILS UP X3 AND PADDED, HOB ELEVATED.NOTED WITH SEVERETREMOTS ON RT ARM . PER GYROSCOPE REPAIRER ATIVAN WILL BE GIVEN , ALSO NOTED SATURATION 88% AT THIS TIME RT AT BEDSIDE, CHANGE VENT SETTING TO FIO2 40% WILL MONITOR Addendum: 02/01/23 at 1125 by MACHELLE MUNGUIA RN 0800 NOTED SATURATION 87-89% RT AT BEDSIDE CHANGED TO FIO2 TO 40% WILL MONITOR
[2023-02-01 08:00] VITALS: BP 110/41
[2023-02-01] MEDS: BUDESONIDE RESPULE INH 0.25 MG/2 ML AMPUL.NEB NEB SCH ×2 (08:05→19:52)
[2023-02-01] MEDS: ALBUTEROL FS 2.5 MG/0.5 ML VIAL.NEB NEB SCH ×2 (08:05→19:52)
[2023-02-01] MEDS: LEVETIRACETAM SOL (5 ML) 100 MG/ML UDC GT SCH ×2 (08:54→20:17)
[2023-02-01] MEDS: LEVOCARNITINE 10% GT SCH ×2 (08:54→17:02)
[2023-02-01] MEDS: ENOXAPARIN SODIUM 40 MG/0.4 ML DISP.SYRIN SQ SCH (08:55)
[2023-02-01] MEDS: SODIUM CHLORIDE 1000 MG TABLET PO SCH (08:56)
[2023-02-01] MEDS: RUFINAMIDE 40 MG/ML GT SCH ×2 (08:56→17:02)
--- NOTE | 2023-02-01 09:25 | NUR ---
raquel rn note spoke with dr coreas neurologist notified that earlier has severe arms tremors and Ativan was fiven, increased dose Keppra and Depakote level stat , and after level give medication , will f\u
[2023-02-01] MEDS: VALPROIC ACID 250 MG/5 ML UDC GT SCH ×3 (09:53→17:01)
--- NOTE | 2023-02-01 10:00 | NUR ---
PROFESSOR CRIMINAL JUSTICE NOTE DR LYON AT BEDSIDE NOTIFIED THAT STILL HAS SOME BLOOD SECRETION, NO NEW ORDER AT THIS TIME WILL MONITOR
[2023-02-01] MEDS ORDERED: FUROSEMIDE 20 MG/2 ML VIAL IV ONE (11:00)
--- NOTE | 2023-02-01 11:26 | NUR ---
LAB INSTRUCTOR NOTE MINDY SCHWARTZ COTTON PICKER AT BEDSIDE UPDATED PATIENT CONDITION,AWAITE THAT EARLIER HAD SEVERE ARMS TREMORS AND PER DR YE NEUROLOGIST MILDRED INCREASED ,DEPAKOTE LEVEL 51 AND OK TO GIVE
--- NOTE | 2023-02-01 11:55 | NUR ---
PROPELLANT CHARGE LOADER NOTE REPORT TO ERIN
[2023-02-01 12:00] VITALS: BP 120/67
[2023-02-01] MEDS: DIAZEPAM 2 MG TABLET GT SCH ×2 (12:53→23:44)
[2023-02-01 16:00] VITALS: BP 124/82
--- NOTE | 2023-02-01 19:30 | NUR ---
telephone quotation clerk closing note pt opens eyes. pt nonverbal. pt vent/trach dependent tolerating vent settings well. hob elevated at all times. pt on tele monitor. pt has r upper arm midline.iv intact, patent and flushing well. pt has Gage catheter. yellow color draining to gravity. pt has gtube. gtube intact, no residual volume noted. pt has edema on lower extremities. elevated extremities on pillows. all safety measures in place. bed locked in lowest positions. side rails up x2. bed alarm on. pt on seizures precautions, padded side rails. endorsed to square cutter rn for conutity of care
[2023-02-01 20:00] VITALS: BP 115/72
--- NOTE | 2023-02-01 23:50 | NUR ---
raquel/ striker out [facility] discrepancy took out 2 tabs of valium 2mg by accident, [facility] will not allow to return, charge nurse aware, will return to pharmacy in the a.m
--- NOTE | 2023-02-02 07:00 | NUR ---
COLOR BLENDER NOTES: RECEIVED PT IN BED, OPENED EYES ON TRACH WITH CURRENT READING: S#6, AC 16,TV 275,FI02 28,PEEP 5. NON VERBAL. CURRENT CARDIAC READING: SINUS RHYTHM 99 BPM. WITH ETIENNE CATHETER DRAINING CLEAR YELLOW COLORED URINE VIA GRAVITY. ON GT FEEDING JEVITY 1.2 @ 40ML/HR. SAFETY MEASURES MAINTAINED: BD LOCKED AND IN LOWEST POSITION, PADDED RAILS NOTED FOR SEIZURE PRECAUTION, SIDE RAILS X 4 AND WILL MONITOR PT ACCORDINGLY.
[2023-02-02 07:22] LABS: BASOPHILS % (AUTO) 0.2 % (0.0-2.0); EOSINOPHILS % (AUTO) 0.8 % (0.0-6.0); HEMATOCRIT 38 % (33-45); HEMOGLOBIN 12.4 g/dL (11.5-14.8); LYMPHOCYTES # (AUTO) 1.9 K/uL (0.8-4.8); LYMPHOCYTES % (AUTO) 19.9 % (20.0-44.0); MEAN CORPUSCULAR HGB CONC 33 g/dl (31.0-36.0); MEAN CORPUSCULAR VOLUME 93 fL (82-100); MONOCYTES # (AUTO) 0.9 K/uL (0.1-1.30); MONOCYTES % (AUTO) 9.2 % (2.0-12.0); NEUTROPHILS # (AUTO) 6.6 K/uL (1.8-8.9); NEUTROPHILS % (AUTO) 69.9 % (43.0-81.0); PLATELET COUNT (AUTO) 507 K/uL (150-450); RED BLOOD CELL COUNT(AUTO) 4.07 MIL/uL (4.0-5.2); WHITE BLOOD COUNT (AUTO) 9.4 K/uL (4.3-11.0)
[2023-02-02 07:36] LABS: CALCIUM, SERUM 10.1 mg/dL (8.5-10.1); CREATININE 0.3 mg/dL (0.6-1.3); MAGNESIUM 2.3 mg/dL (1.8-2.4); PHOSPHORUS 4.7 mg/dL (2.5-4.9); POTASSIUM 4.5 mmol/L (3.5-5.1)
[2023-02-02] MEDS: ALBUTEROL FS 2.5 MG/0.5 ML VIAL.NEB NEB SCH ×2 (07:42→19:31)
[2023-02-02] MEDS: BUDESONIDE RESPULE INH 0.25 MG/2 ML AMPUL.NEB NEB SCH ×2 (07:57→19:32)
[2023-02-02] MEDS: SODIUM CHLORIDE 1000 MG TABLET PO SCH (08:01)
[2023-02-02] MEDS: LEVETIRACETAM SOL (5 ML) 100 MG/ML UDC GT SCH ×2 (08:02→20:08)
[2023-02-02] MEDS: VALPROIC ACID 250 MG/5 ML UDC GT SCH ×3 (08:02→16:42)
[2023-02-02] MEDS: RUFINAMIDE 40 MG/ML GT SCH ×2 (08:03→16:42)
[2023-02-02] MEDS: ENOXAPARIN SODIUM 40 MG/0.4 ML DISP.SYRIN SQ SCH (08:18)
[2023-02-02] MEDS: LEVOCARNITINE 10% GT SCH ×2 (08:37→16:43)
[2023-02-02 10:00] VITALS: BP 108/82
[2023-02-02] MEDS: DIAZEPAM 2 MG TABLET GT SCH ×2 (11:28→23:21)
[2023-02-02] MEDS ORDERED: FUROSEMIDE 20 MG/2 ML VIAL IV ONE (14:00)
--- NOTE | 2023-02-02 15:56 | NUR ---
RN NOTES: COLLECTED URINE SPECIMEN, CALLED LAB FOR SPECIMEN ACCIDENT REPORT CLERK.
[2023-02-02 16:44] LABS: BILIRUBIN,URINE NEGATIVE (NEGATIVE); COLOR,URINE YELLOW (YELLOW); LEUKOCYTE ESTERASE ,URINE NEGATIVE (NEGATIVE); NITRITE, URINE NEGATIVE (NEGATIVE); PH,URINE 6.5 (5.0-8.0); PROTEIN,URINE NEGATIVE (NEGATIVE); UGLUCOSE NEGATIVE (NEGATIVE); UROBILINOGEN,URINE 0.2 EU/dL (0.2)
[2023-02-02 16:55] LABS: BACTERIA,URINE None seen /HPF (None Seen); SQUAMOUS EPITHELIAL CELL,UR 0-2 /HPF (None Seen); WBC,URINE 0-2 /HPF (0-3)
[2023-02-02] MEDS: JEVITY 1.2 CAL 1,000 ML BOTTLE GT SCH (17:59)
--- NOTE | 2023-02-02 18:52 | NUR ---
SHAPE HAND CLOSING NOTES: PT IN BED, NON VERBAL OPENING EYES ON TRACH WITH CURRENT SETTINGS : S#6, AC 16,TV 275,FI02 28,PEEP 5. CURRENT CARDIAC READING: SINUS RHYTHM @87 BPM. WITH ETIENNE CATHETER DRAINING CLEAR YELLOW COLORED URINE VIA GRAVITY. ON GT FEEDING JEVITY 1.2 @ 40ML/HR. SAFETY MEASURES MAINTAINED: BED LOCKED AND IN LOWEST POSITION, PADDED RAILS NOTED FOR SEIZURE PRECAUTION, SIDE RAILS X 4 AND WILL MONITOR PT ACCORDINGLY. ENDORSED TO CLAIM PROFESSIONAL RN FOR JR.
[2023-02-02 20:00] VITALS: BP 99/61
--- NOTE | 2023-02-02 20:46 | NUR ---
RECEIVED PATIENT IN BED, ALERT AND AWAKE, TRACH DEPENDENT, NO RESPIRATORY DISTRESS, SUCTIONED PRN, SPO2 99%, PEG TUBE FEEDING, INFUSING, TOLERATING WELL, JEVITY 1.2 AT 40 ML/HR, PLACEMENT AUSCULTATED, NO RESIDUAL, FLUSHED WELL, ETIENNE CATHETER DRAINING WELL, KEPT HOB ELEVATED, ASPIRATION AND SEIZURE PRECAUTION. WILL CONTINUE TO MONITOR.
[2023-02-03] VITALS: BP 99/44
[2023-02-03 04:00] VITALS: BP 112/52
--- NOTE | 2023-02-03 05:46 | NUR ---
PATIENT RECEIVED ON TRACH TO VENT WITH SETTINGS OF AC 16, 275 Vt, 40%, +5. SUCTIONED FOR MINIMAL, THICK, WHITE, RED-TINGED SECRETIONS. GIVEN IN-LINE TREATMENTS WITH NO ADVERSE REACTIONS. AMBU BAG AT BEDSIDE. VENT AND PULSE OXIMETER ALARMS AUDIBLE AND VISIBLE. OSORIO, HHN, AND HME CHANGED. VENT PLUGGED INTO RED OUTLET. Addendum: 02/03/23 at 0548 by ALEX HUSSEIN RT Amended: Links added.
--- NOTE | 2023-02-03 06:20 | NUR ---
ALERT AND AWAKE, NON-VERBAL, TRACH DEPENDENT, SPO2 UP TO 100%, SR ON THE TELE, SUCTIONED PRN, JEVITY 1.2 AT 40 ML/HR, TOLERATING WELL, NO VOMITING, REMAINED ON 1000 ML PER 24 HR FLUID RESTRICTION, FLUSHED GT 30 ML WITH EACH MEDICATION GIVEN. PEG SITE DRY AND CLEAN, DRESSING CHANGED. VS STABLE, AFEBRILE, ETIENNE CATHETER DRAINING CLEAR AND YELLOW URINE, MONITOR LABS, TURNING AND REPOSITIONING, VENTILATOR CARE.
[2023-02-03 07:11] LABS: BASOPHILS % (AUTO) 0.2 % (0.0-2.0); EOSINOPHILS % (AUTO) 0.9 % (0.0-6.0); HEMATOCRIT 32 % (33-45); HEMOGLOBIN 10.7 g/dL (11.5-14.8); LYMPHOCYTES # (AUTO) 1.3 K/uL (0.8-4.8); LYMPHOCYTES % (AUTO) 12.3 % (20.0-44.0); MEAN CORPUSCULAR HGB CONC 34 g/dl (31.0-36.0); MEAN CORPUSCULAR VOLUME 92 fL (82-100); MONOCYTES # (AUTO) 1.1 K/uL (0.1-1.30); MONOCYTES % (AUTO) 10.2 % (2.0-12.0); NEUTROPHILS % (AUTO) 76.4 % (43.0-81.0); PLATELET COUNT (AUTO) 483 K/uL (150-450); RED BLOOD CELL COUNT(AUTO) 3.44 MIL/uL (4.0-5.2); WHITE BLOOD COUNT (AUTO) 10.4 K/uL (4.3-11.0)
--- NOTE | 2023-02-03 07:56 | NUR ---
PUNCH PRESS FEEDER OPENING NOTES ALERT, AWAKE, NON-VERBAL, TRACH DEPENDENT, SPO2 UP TO 100%, SR ON THE TELE, SUCTIONED PRN, JEVITY 1.2 AT 40 ML/HR, TOLERATING WELL, NO VOMITING, REMAINED ON 1000 ML PER 24 HR FLUID RESTRICTION, PEG SITE DRY AND INTACT. AFEBRILE, ETIENNE CATHETER DRAINING CLEAR AND YELLOW URINE, TURNING AND REPOSITIONING, VENTILATOR CARE. WITH PARVIZ MIDLINE, NO S/S OF COMPLICATIONS
[2023-02-03 08:00] VITALS: BP 108/77
[2023-02-03 08:06] LABS: CALCIUM, SERUM 9.4 mg/dL (8.5-10.1); CREATININE 0.3 mg/dL (0.6-1.3); MAGNESIUM 2.3 mg/dL (1.8-2.4); PHOSPHORUS 4.4 mg/dL (2.5-4.9); POTASSIUM 4.2 mmol/L (3.5-5.1)
[2023-02-03] MEDS: BUDESONIDE RESPULE INH 0.25 MG/2 ML AMPUL.NEB NEB SCH (08:18)
[2023-02-03] MEDS: ALBUTEROL FS 2.5 MG/0.5 ML VIAL.NEB NEB SCH (08:18)
[2023-02-03] MEDS: ENOXAPARIN SODIUM 40 MG/0.4 ML DISP.SYRIN SQ SCH (09:41)
[2023-02-03] MEDS: LEVETIRACETAM SOL (5 ML) 100 MG/ML UDC GT SCH (09:42)
[2023-02-03] MEDS: SODIUM CHLORIDE 1000 MG TABLET PO SCH (09:42)
[2023-02-03] MEDS: VALPROIC ACID 250 MG/5 ML UDC GT SCH ×2 (09:42→12:21)
[2023-02-03] MEDS: LEVOCARNITINE 10% GT SCH (09:44)
[2023-02-03] MEDS: RUFINAMIDE 40 MG/ML GT SCH (09:45)
[2023-02-03 12:00] VITALS: BP 114/54
[2023-02-03] MEDS ORDERED: SODI100037 PO (12:11)
[2023-02-03] MEDS ORDERED: LEVE100S GT (12:11)
[2023-02-03] MEDS: DIAZEPAM 2 MG TABLET GT SCH (12:20)
--- NOTE | 2023-02-03 14:29 | NUR ---
Wound picture taken before patient discharge.
--- NOTE | 2023-02-03 14:43 | NUR ---
2 campus coordinator PICKED UP THE PATIENT, AND GIVEN REPORT. THE PATIENT INSTABLE CONDITION, REMOVED MIDLINE AND ETIENNE CATHETER MOTHER REQUESTED TO REMOVE) BEFORE PATIENT LEAVE. ALL HOME MEDICATIONS RETURNED TO MOTHER.
--- NOTE | 2023-02-03 18:55 | NUR ---
PATIENT DISCHARGED AROUND 1445 WITH RETURNED ALL MEDICATION. HER MOTHER/MARTHA CALLED STATED "MISSING DIAZEPAM AND VALPROIC ACID." CHECKED WITH PHARMACY/LEE THAT WE RETURNED TO MOTHER MEDICATIONS WHICH ARE LEVOCARNITINE AND RUFINAMIDE. SPOKE WITH MOTHER/MARTHA AND INFORMED DR. SHELLEY WHO WILL PRESCRIBE TWO OF THOSE MEDICATIONS TO THE PATIENT'S PHARMACY. INFORMED MOTHER/MARTHA REGARDING ABOVE.
[2023-02-03] MEDS ORDERED: VALP250S4 GT (19:00)
[2023-02-03] MEDS ORDERED: DIAZ5SOL GT (19:00)
== END 2023-02-03 15:18 | disposition home health service (06) | DRG 130 ==
LOC: ER 18:32 → TELE1 21:39 → ICU 01-23 17:11 → TELE-TD 01-29 17:39 → TELE1 02-01 10:28
PROVIDERS: ADMIT Internal Medicine; ATTEND Internal Medicine
PROC: 5A1935Z Respiratory Ventilation, Less than 24 Consecutive Hours (ICD-10-PCS; 2023-01-20)
PROC: 5A1955Z Respiratory Ventilation, Greater than 96 Consecutive Hours (ICD-10-PCS; principal; 2023-01-22)
PROC: 05HB33Z Insertion of Infusion Device into Right Basilic Vein, Percutaneous Approach (ICD-10-PCS; 2023-01-22)
DX: J15.6 Pneumonia due to other Gram-negative bacteria (principal); N17.0 Acute kidney failure with tubular necrosis; G40.919 Epilepsy, unspecified, intractable, without status epilepticus; E43 Unspecified severe protein-calorie malnutrition; J96.21 Acute and chronic respiratory failure with hypoxia; G93.41 Metabolic encephalopathy; F84.2 Rett's syndrome; J90 Pleural effusion, not elsewhere classified; E86.0 Dehydration; G80.9 Cerebral palsy, unspecified; E87.1 Hypo-osmolality and hyponatremia; E86.1 Hypovolemia; E87.6 Hypokalemia; E88.09 Other disorders of plasma-protein metabolism, not elsewhere classified; J96.22 Acute and chronic respiratory failure with hypercapnia; R13.10 Dysphagia, unspecified; Z93.1 Gastrostomy status; J95.01 Hemorrhage from tracheostomy stoma; Z99.11 Dependence on respirator [ventilator] status; Z88.0 Allergy status to penicillin; Z88.1 Allergy status to other antibiotic agents
CPT/HCPCS: 31720; 36415; 36600; 70450-TC; 71045-TC; 71250-TC; 76604-TC; 80048-TC; 80053-TC; 80076-TC; 80164-TC; 81001; 82803-TC; 82962-TC; 83605-TC; 83735-TC; 84100-TC; 84300-TC; 84478-TC; 84484-TC; 84703-TC; 85025-TC; 85730-TC; 87040-TC; 87081-TC; 87086-TC; 94002-TC; 94003-TC; 94760-TC; 94762-TC; 94799-TC; 95819-TC; A4223; A4623; A4624; A7521; A7526; C9803; G0378; J0360; J1650; J1940; J1953; J1956; J2060; J2930; J3490; J7030; J7050; J7060; J7070